=== PATIENT | female | born 1960 | race Caucasian/White ===

== ENCOUNTER → 2016-07-23 | Outpatient (CLI) | payer BC, MEDICARE ==
--- NOTE | 2016-07-23 12:43 | NM ---
Nuclear medicine hepatobiliary scan. HISTORY: Pain. COMPARISON: 07/05/2010 The patient received 2 micrograms of CCK and 5.3 mCi of Technetium 99m Choletec. There is normal hepatic extraction. The gallbladder is seen by 3.5 minutes. There is biliary to bow el clearance by 20 minutes. Ejection fraction could not be obtained. IMPRESSION: 1. Delayed uptake within the gallbladder suggestive of 3.5 hours. Findings are suspicious for cholecy stitis. Correlate clinically.
== END | disposition home or self-care (01) ==
LOC: RADNMMAIN 06:31
PROVIDERS: ATTEND Surgery
DX: R10.11 Right upper quadrant pain (principal); R13.10 Dysphagia, unspecified
CPT/HCPCS: 78227; A9537; J2805

== ENCOUNTER → 2016-08-16 | Outpatient (CLI) | payer BC, MEDICARE ==
[2016-08-16 10:25] LABS: Blood Urea Nitrogen 13 mg/dL (7-17); Non-African American GFR(MDRD) >60 (>60 ml/min/1.73 sqM)
--- NOTE | 2016-08-16 11:11 | CT ---
EXAMINATION TYPE: CT angio chest DATE OF EXAM: 08/16/2016 11:01 AM COMPARISON: Previous study dated 05/31/2016 HISTORY: Patient has no complaints at time of study. Follow up study for known pulmonary embolism. CT DLP: 602 mGycm Automated exposure control for dose reduction was used. CONTRAST: CTA scan of the thorax is performed with IV Contrast, patient injected with 100 mL of Omnipaque 350, pulmonary embolism protocol. . FINDINGS: The lungs are clear. There is a 1 cm right axillary lymph node. No other significant axillary, internal mammary, mediastin al or hilar adenopathy is noted. The patient's pulmonary emboli have resolved. There is no evidence of acute pulmonary embolus at this time. The aorta is normal in caliber without evidence of dissection. There is no pleural or pericardial fluid. The heart is not enlarged. Within the abdomen, there is fatty infiltration of the liver. The remainder the visualized abdomen is unremarkable. There is degenerative disc disease and hypertrophic spondylosis within the spine. There has been a pr evious ACDF involving the lower cervical spine. IMPRESSION: 1. THIS EXAMINATION IS NEGATIVE FOR PULMONARY EMBOLUS. 2. NONSPECIFIC RIGHT AXILLARY ADENOPATHY. 3. FATTY INFILTRATION OF THE LIVER. 4. DEGENERATIVE CHANGE WITHIN THE SPINE.
== END | disposition home or self-care (01) ==
LOC: RADCTMAIN 09:39
PROVIDERS: ATTEND Internal Medicine Critical Care Medicine
DX: Z09 Encounter for follow-up examination after completed treatment for conditions other than malignant neoplasm (principal); R59.0 Localized enlarged lymph nodes; Z01.812 Encounter for preprocedural laboratory examination; E11.9 Type 2 diabetes mellitus without complications; Z86.711 Personal history of pulmonary embolism
CPT/HCPCS: 82565; 84520; 71275; 36415; Q9967

== ENCOUNTER 2016-08-17 14:48 | Inpatient (IN) | payer BC, MEDICARE ==
[2016-08-17] MEDS ORDERED: SODIUM CHLORIDE 0.9% 1,000 ML IV STA ×2 (15:49)
[2016-08-17] MEDS ORDERED: PANTOPRAZOLE 40 MG/10 ML VIAL IVP STA (15:49)
[2016-08-17] MEDS ORDERED: SODIUM CHLORIDE 0.9% 500 ML IV STA (15:49)
[2016-08-17] MEDS ORDERED: ONDANSETRON 4 MG/2 ML VIAL IVP STA (15:49)
--- NOTE | 2016-08-17 16:02 | ED ---
General Adult HPI - General Chief complaint: Nausea/Vomiting/Diarrhea Stated complaint: vomiting/dehydrated/abdominal pain Time Seen by Provider: 08/17/16 15:41 Source: patient, RN notes reviewed, old records reviewed Mode of arrival: wheelchair Limitations: no limitations - History of Present Illness Initial comments: This is a 56-year-old female to the ER for evaluation of weight loss and nausea vomiting. Patient has significant history of recent weight loss decreased appetite and inability to tolerate oral intake. Patient is been seen and evaluated by Dr. wandy river in her family doctor. Patient has no specific chest pain no abdominal pain but does have active nausea vomiting with eating, decreased bowel movements. No other modifying factors for symptoms. Patient also noticed a significant weight loss symptoms going on for about 6 months - Related Data Home Medications Medication Instructions Recorded Confirmed Verapamil HCl [Verapamil ER] 180 mg PO DAILY 12/09/13 08/17/16 Albuterol Nebulized [Ventolin 2.5 mg INHALATION QID PRN 08/17/16 08/17/16 Nebulized] Levothyroxine Sodium [Synthroid] 150 mcg PO DAILY 08/17/16 08/17/16 Omeprazole [PriLOSEC] 20 mg PO DAILY 08/17/16 08/17/16 Ondansetron Odt [Zofran Odt] 4 mg PO Q8HR PRN 08/17/16 08/17/16 Ramipril [Altace] 2.5 mg PO DAILY 08/17/16 08/17/16 Rivaroxaban [Xarelto] 20 mg PO DAILY 08/17/16 08/17/16 Allergies Allergy/AdvReac Type Severity Reaction Status Date / Time adhesive Allergy Rash/Hives Verified 08/17/16 15:54 aspirin Allergy Unknown Verified 08/17/16 15:54 gabapentin Allergy Unknown Verified 08/17/16 15:54 NSAIDS (Non-Steroidal Allergy Unknown Verified 08/17/16 15:54 Anti-Inflamma ciprofloxacin [From Cipro] AdvReac Unknown Verified 08/17/16 15:54 ciprofloxacin HCl AdvReac Unknown Verified 08/17/16 15:54 [From Cipro] steroids Allergy Rash/Hives Uncoded 08/17/16 14:57 sulfates Allergy Unknown Uncoded 08/17/16 14:57 Review of Systems ROS Statement: Those systems with pertinent positive or pertinent negative responses have been documented in the HPI. ROS Other: All systems not noted in ROS Statement are negative. Past Medical History Past Medical History: Asthma, Diabetes Mellitus, GERD/Reflux, Hypertension, Myocardial Infarction (IA), Osteoarthritis (OA), Thyroid Disorder Additional Past Medical History / Comment(s): within past 4-6 weeks developed shingles of the tongue and mouth, difficulty swallowing, pt states "bottom 2 valves of heart not working right" and stated had IA within past 4-6 weeks and "collapsed lungs on the bottom of each lung and loss of 34# with constant cough. blood clots in lungs Last Myocardial Infarction Date:: 05/16 History of Any Multi-Drug Resistant Organisms: None Reported Past Surgical History: Section, Hernia Repair, Hysterectomy, Orthopedic Surgery Additional Past Surgical History / Comment(s): carpal tunnel. cataracts, cervical disc C6 replaced with plate and 4 screws Past Anesthesia/Blood Transfusion Reactions: Previous Problems w/ Anesthesia, Motion Sickness Additional Past Anesthesia/Blood Transfusion Reaction / Comment(s): "hard time waking up" and states difficult to lay flat Past Psychological History: No Psychological Hx Reported Smoking Status: Never smoker Past Alcohol Use History: None Reported Past Drug Use History: None Reported - Past Family History Mother Family Medical History: Cancer General Exam Limitations: no limitations General appearance: alert, in no apparent distress Head exam: Present: atraumatic, normocephalic, normal inspection Eye exam: Present: normal appearance, PERRL, EOMI. Absent: scleral icterus, conjunctival injection, periorbital swelling ENT exam: Present: normal exam, mucous membranes moist Neck exam: Present: normal inspection. Absent: tenderness, meningismus, lymphadenopathy Respiratory exam: Present: normal lung sounds bilaterally. Absent: respiratory distress, wheezes, rales, rhonchi, stridor Cardiovascular Exam: Present: regular rate, normal rhythm, normal heart sounds. Absent: systolic murmur, diastolic murmur, rubs, gallop, clicks GI/Abdominal exam: Present: soft, distended, tenderness, normal bowel sounds. Absent: guarding, rebound, rigid Extremities exam: Present: normal inspection, full ROM, normal capillary refill. Absent: tenderness, pedal edema, joint swelling, calf tenderness Back exam: Present: normal inspection Neurological exam: Present: alert, oriented X3, CN II-XII intact Psychiatric exam: Present: normal affect, normal mood Skin exam: Present: warm, dry, intact, normal color. Absent: rash Course Vital Signs 08/17/16 08/17/16 08/17/16 14:57 17:00 18:47 Temperature 97.5 F L 97.9 F 97.8 F Pulse Rate 96 84 84 Respiratory 18 18 18 Rate Blood Pressure 116/56 132/60 O2 Sat by Pulse 97 98 Oximetry - Reevaluation(s) Reevaluation #1: 08/17/16 19:04 Patient does have continued epigastric abdominal pain with nausea and vomiting Reevaluation #2: 08/17/16 19:04 Patient has complicated recent hospital course is Dr. Bravo patient for gallbladder disease, patient has been on anticoagulation for PE currently without positive findings of PE, patient will stop anticoagulation which is currently Xarelto EKG Findings - EKG Comments: EKG Findings:: EKG shows normal sinus rhythm rate of 80, NJ 146, QRS 70, QTC 399 Medical Decision Making - Medical Decision Making 56 female the ER for evaluation of acute nausea and vomiting, chronic nausea vomiting and weight loss, positive cholecystitis multiple electrolyte derangements, patient will be admitted for IV resuscitation and antibiotics and surgical evaluation - Lab Data Result diagrams: 08/17/16 16:00 08/17/16 16:00 Lab Results 08/17/16 08/17/16 08/17/16 Range/Units 16:00 16:00 16:00 WBC 10.0 (3.8-10.6) k/uL RBC 4.97 (3.80-5.40) m/uL Hgb 15.0 (11.4-16.0) gm/dL Hct 44.2 (34.0-46.0) % MCV 88.9 (80.0-100.0) fL MCH 30.1 (25.0-35.0) pg MCHC 33.9 (31.0-37.0) g/dL RDW 12.2 (11.5-15.5) % Plt Count 289 (150-450) k/uL Neutrophils % 76 % Lymphocytes % 13 % Monocytes % 7 % Eosinophils % 3 % Basophils % 1 % Neutrophils # 7.6 (1.3-7.7) k/uL Lymphocytes # 1.3 (1.0-4.8) k/uL Monocytes # 0.7 (0-1.0) k/uL Eosinophils # 0.3 (0-0.7) k/uL Basophils # 0.1 (0-0.2) k/uL PT (9.0-12.0) sec INR (<1.1) APTT (22.0-30.0) sec Sodium 142 (137-145) mmol/L Potassium 4.2 (3.5-5.1) mmol/L Chloride 101 (98-107) mmol/L Carbon Dioxide 20 L (22-30) mmol/L Anion Gap 21 mmol/L BUN 13 (7-17) mg/dL Creatinine 0.59 (0.52-1.04) mg/dL Est GFR (MDRD) Af Amer >60 (>60 ml/min/1.73 sqM) Est GFR (MDRD) Non-Af >60 (>60 ml/min/1.73 sqM) Glucose 119 H (74-99) mg/dL Plasma Lactic Acid Rico (0.7-2.0) mmol/L Calcium 11.3 H (8.4-10.2) mg/dL Phosphorus 4.7 H (2.5-4.5) mg/dL Magnesium 1.8 (1.6-2.3) mg/dL Total Bilirubin 1.5 H (0.2-1.3) mg/dL AST 45 H (14-36) U/L ALT 61 H (9-52) U/L Alkaline Phosphatase 193 H (38-126) U/L Total Creatine Kinase <20 L (30-135) U/L CK-MB (CK-2) <0.2 (0.0-2.4) ng/mL CK-MB (CK-2) Rel Index Troponin I <0.012 (0.000-0.034) ng/mL NT-Pro-B Natriuret Pep pg/mL Total Protein 7.2 (6.3-8.2) g/dL Albumin 4.2 (3.5-5.0) g/dL TSH <0.015 L (0.465-4.680) mIU/L Urine Color Urine Appearance (Clear) Urine pH (5.0-8.0) Ur Specific [place] (1.001-1.035) Urine Protein (Negative) Urine Glucose (UA) (Negative) Urine Ketones (Negative) Urine Blood (Negative) Urine Nitrate (Negative) Urine Bilirubin (Negative) Urine Urobilinogen (<2.0) mg/dL Ur Leukocyte Esterase (Negative) Urine RBC (0-5) /hpf Urine WBC (0-5) /hpf Ur Squamous Epith Cells (0-4) /hpf Amorphous Sediment (None) /hpf Urine Bacteria (None) /hpf Cellular Casts (0) /lpf Granular Casts (0) /lpf Urine Mucus (None) /hpf 08/17/16 08/17/16 08/17/16 Range/Units 16:00 16:00 16:00 WBC (3.8-10.6) k/uL RBC (3.80-5.40) m/uL Hgb (11.4-16.0) gm/dL Hct (34.0-46.0) % MCV (80.0-100.0) fL MCH (25.0-35.0) pg MCHC (31.0-37.0) g/dL RDW (11.5-15.5) % Plt Count (150-450) k/uL Neutrophils % % Lymphocytes % % Monocytes % % Eosinophils % % Basophils % % Neutrophils # (1.3-7.7) k/uL Lymphocytes # (1.0-4.8) k/uL Monocytes # (0-1.0) k/uL Eosinophils # (0-0.7) k/uL Basophils # (0-0.2) k/uL PT 11.3 (9.0-12.0) sec INR 1.1 (<1.1) APTT 26.4 (22.0-30.0) sec Sodium (137-145) mmol/L Potassium (3.5-5.1) mmol/L Chloride (98-107) mmol/L Carbon Dioxide (22-30) mmol/L Anion Gap mmol/L BUN (7-17) mg/dL Creatinine (0.52-1.04) mg/dL Est GFR (MDRD) Af Amer (>60 ml/min/1.73 sqM) Est GFR (MDRD) Non-Af (>60 ml/min/1.73 sqM) Glucose (74-99) mg/dL Plasma Lactic Acid Rico 1.3 (0.7-2.0) mmol/L Calcium (8.4-10.2) mg/dL Phosphorus (2.5-4.5) mg/dL Magnesium (1.6-2.3) mg/dL Total Bilirubin (0.2-1.3) mg/dL AST (14-36) U/L ALT (9-52) U/L Alkaline Phosphatase (38-126) U/L Total Creatine Kinase (30-135) U/L CK-MB (CK-2) (0.0-2.4) ng/mL CK-MB (CK-2) Rel Index Troponin I (0.000-0.034) ng/mL NT-Pro-B Natriuret Pep 59 pg/mL Total Protein (6.3-8.2) g/dL Albumin (3.5-5.0) g/dL TSH (0.465-4.680) mIU/L Urine Color Urine Appearance (Clear) Urine pH (5.0-8.0) Ur Specific [place] (1.001-1.035) Urine Protein (Negative) Urine Glucose (UA) (Negative) Urine Ketones (Negative) Urine Blood (Negative) Urine Nitrate (Negative) Urine Bilirubin (Negative) Urine Urobilinogen (<2.0) mg/dL Ur Leukocyte Esterase (Negative) Urine RBC (0-5) /hpf Urine WBC (0-5) /hpf Ur Squamous Epith Cells (0-4) /hpf Amorphous Sediment (None) /hpf Urine Bacteria (None) /hpf Cellular Casts (0) /lpf Granular Casts (0) /lpf Urine Mucus (None) /hpf 08/17/16 Range/Units 16:20 WBC (3.8-10.6) k/uL RBC (3.80-5.40) m/uL Hgb (11.4-16.0) gm/dL Hct (34.0-46.0) % MCV (80.0-100.0) fL MCH (25.0-35.0) pg MCHC (31.0-37.0) g/dL RDW (11.5-15.5) % Plt Count (150-450) k/uL Neutrophils % % Lymphocytes % % Monocytes % % Eosinophils % % Basophils % % Neutrophils # (1.3-7.7) k/uL Lymphocytes # (1.0-4.8) k/uL Monocytes # (0-1.0) k/uL Eosinophils # (0-0.7) k/uL Basophils # (0-0.2) k/uL PT (9.0-12.0) sec INR (<1.1) APTT (22.0-30.0) sec Sodium (137-145) mmol/L Potassium (3.5-5.1) mmol/L Chloride (98-107) mmol/L Carbon Dioxide (22-30) mmol/L Anion Gap mmol/L BUN (7-17) mg/dL Creatinine (0.52-1.04) mg/dL Est GFR (MDRD) Af Amer (>60 ml/min/1.73 sqM) Est GFR (MDRD) Non-Af (>60 ml/min/1.73 sqM) Glucose (74-99) mg/dL Plasma Lactic Acid Rico (0.7-2.0) mmol/L Calcium (8.4-10.2) mg/dL Phosphorus (2.5-4.5) mg/dL Magnesium (1.6-2.3) mg/dL Total Bilirubin (0.2-1.3) mg/dL AST (14-36) U/L ALT (9-52) U/L Alkaline Phosphatase (38-126) U/L Total Creatine Kinase (30-135) U/L CK-MB (CK-2) (0.0-2.4) ng/mL CK-MB (CK-2) Rel Index Troponin I (0.000-0.034) ng/mL NT-Pro-B Natriuret Pep pg/mL Total Protein (6.3-8.2) g/dL Albumin (3.5-5.0) g/dL TSH (0.465-4.680) mIU/L Urine Color Dark Brown Urine Appearance Turbid H (Clear) Urine pH 6.0 (5.0-8.0) Ur Specific [place] 1.028 (1.001-1.035) Urine Protein 3+ H (Negative) Urine Glucose (UA) Negative (Negative) Urine Ketones 3+ H (Negative) Urine Blood Negative (Negative) Urine Nitrate Negative (Negative) Urine Bilirubin 2+ H (Negative) Urine Urobilinogen 8.0 (<2.0) mg/dL Ur Leukocyte Esterase Negative (Negative) Urine RBC 7 H (0-5) /hpf Urine WBC 7 H (0-5) /hpf Ur Squamous Epith Cells 14 H (0-4) /hpf Amorphous Sediment Rare H (None) /hpf Urine Bacteria Many H (None) /hpf Cellular Casts 13 (0) /lpf Granular Casts 40 (0) /lpf Urine Mucus Many H (None) /hpf - Radiology Data Radiology results: report reviewed (Ultrasound shows positive cholecystitis), image reviewed Disposition Clinical Impression: Acute cholecystitis, Dehydration, Nausea and vomiting, Anorexia Disposition: ADMITTED IP TO THIS HOSP Condition: Fair Referrals: Shira Velasquez DO [Primary Care Provider] - 1-2 days
[2016-08-17 16:23] LABS: Basophils # (A) 0.1 k/uL (0-0.2); Basophils % (A) 1 %; CH 31.1; CHCM 35.1; Eosinophils # (A) 0.3 k/uL (0-0.7); Eosinophils % (A) 3 %; HCT 44.2 % (34.0-46.0); HDW 2.87; Luc # (Auto) 0.14; Luc % (Auto) 1; Lymphocytes # (A) 1.3 k/uL (1.0-4.8); Lymphocytes % (A) 13 %; MCH 30.1 pg (25.0-35.0); MCHC 33.9 g/dL (31.0-37.0); MCV 88.9 fL (80.0-100.0); Mean Platelet Volume 9.6; Monocytes # (A) 0.7 k/uL (0-1.0); Monocytes % (A) 7 %; Neutrophils # (A) 7.6 k/uL (1.3-7.7); Neutrophils % (A) 76 %; RBC 4.97 m/uL (3.80-5.40); RDW 12.2 % (11.5-15.5); WBC (Perox) 9.87
[2016-08-17 16:32] LABS: INR 1.1 (<1.1); Partial Thromboplastin Time 26.4 sec (22.0-30.0); Prothrombin Time 11.3 sec (9.0-12.0)
[2016-08-17 16:35] LABS: Amorphous Sediment,Urine Rare /hpf; Appearance,Urine Turbid (Clear); Bacteria,Urine Many /hpf; Bilirubin,Urine 2+ (Negative); Glucose,Urine (UA) Negative (Negative); Granular Casts,Urine 40 /lpf (0); Ketones,Urine 3+ (Negative); Leukocyte Esterase,Urine Negative (Negative); Mucus,Urine Many /hpf; Nitrite,Urine Negative (Negative); Particle Count 49795; Protein,Urine 3+ (Negative); RBC,Urine 7 /hpf (0-5); Specific Gravity,Urine 1.028 (1.001-1.035); Squamous Epithelial Cell,Urine 14 /hpf (0-4); UA Billing (MACRO vs. MICRO) MICRO; WBC,Urine 7 /hpf (0-5)
[2016-08-17 16:39] LABS: ALT 61 U/L (9-52); AST 45 U/L (14-36); Alkaline Phosphatase 193 U/L (38-126); Anion Gap 21 mmol/L; Blood Urea Nitrogen 13 mg/dL (7-17); Calcium 11.3 mg/dL (8.4-10.2); Carbon Dioxide 20 mmol/L (22-30); Chloride 101 mmol/L (98-107); Glucose 119 mg/dL (74-99); Magnesium 1.8 mg/dL (1.6-2.3); Non-African American GFR(MDRD) >60 (>60 ml/min/1.73 sqM); Phosphorous 4.7 mg/dL (2.5-4.5); Potassium 4.2 mmol/L (3.5-5.1); Sodium 142 mmol/L (137-145); Total Bilirubin 1.5 mg/dL (0.2-1.3); Total Protein 7.2 g/dL (6.3-8.2)
[2016-08-17 16:53] LABS: Creatine Kinase <20 U/L (30-135)
[2016-08-17 17:06] LABS: Creatine Kinase MB <0.2 ng/mL (0.0-2.4); Troponin I <0.012 ng/mL (0.000-0.034)
--- NOTE | 2016-08-17 18:19 | US ---
EXAMINATION TYPE: US gallbladder DATE OF EXAM: 08/17/2016 5:44 PM COMPARISON: NONE CLINICAL HISTORY: Pain. Nausea/vomiting EXAM MEASUREMENTS: Liver Length: 19.1 cm Gallbladder Wall: 0.4 cm CBD: 0.3 cm Right Kidney: 10.7 x 3.8 x 4.5 cm TECHNOLOGIST IMPRESSION: Pancreas: obscured by overlying bowel content Liver: technical limitations, limited evaluation, enlarged, heterogeneous, unable to penetrate Gallbladder: echogenic material with shadowing dependant portion of GB, ?possible sludge with tiny stones, thickened GB wall Evidence for sonographic Boyd's sign: patient complaining of pain all over CBD: appears wnl Right Kidney: no evidence of hydronephrosis or mass IMPRESSION: There is echogenic bile in the dependent gallbladder. There is mild gallbladder wall thic kening consistent with cholecystitis. No dilated ducts. No focal liver defect.
[2016-08-17] MEDS ORDERED: MORPHINE SULFATE 4 MG/ML SYRINGE IVP STA (19:05)
[2016-08-17 21:51] VITALS: BMI 37.8
[2016-08-17] MEDS: MORPHINE SULFATE 4 MG/ML SYRINGE IVP PRN (23:08)
[2016-08-17] MEDS: ONDANSETRON 4 MG/2 ML VIAL IVP PRN (23:11)
[2016-08-18] MEDS: ONDANSETRON 4 MG/2 ML VIAL IVP PRN ×4 (08:22→23:51)
[2016-08-18] MEDS: PANTOPRAZOLE 40 MG/10 ML VIAL IVP SCH (08:22)
[2016-08-18] MEDS: MORPHINE SULFATE 4 MG/ML SYRINGE IVP PRN ×2 (08:38→23:56)
[2016-08-18] MEDS ORDERED: BISACODYL 10 MG SUPP RECTAL STA (09:19)
--- NOTE | 2016-08-18 10:00 | P.GSCN ---
History of Present Illness Consult date: 08/18/16 Reason for Consult: gALL BLADDER DISEASE History of present illness: The patient is a [age] white female who was admitted through the emergency room last night. Has had a long history several months now of the abdominal symptoms mostly of nausea vomiting and upper abdominal pain and weight loss and anorexia have evidence of gallbladder disease with the lithiasis was deferred because of her history recently for pulmonary embolism patient being on anticoagulation. Also had recently shingles infection involving her mouth and throat. Has lost amount of weight since May was is symptoms when her symptoms started. She presented to the emergency room last night because of worsening symptoms. No fever or chills. Hasn't had a bowel movement for several days now. She had an ultrasound last night which showed thickened gallbladder wall with evidence of sludge especially in the area of the neck of the gallbladder. Past history well-documented on recent admissions. Surgery includes a hysterectomy umbilical hernia repair is also had some cervical neck surgery. History of recent pulmonary embolism about the 3 months ago. On sotalol for. Has a history of hypertension hypertension depression. ALLERGIES has multiple ALLERGIES including to aspirin and nsaids Gabapentin, Cipro. Symptoms review as above. No current chest pain. No shortness of breath. No cough hemoptysis. Has some constipation. No blood in the stool. No urinary symptoms. Has had a fair amount of weight loss. On examination the patient is awake alert in no acute distress at this time. She is somewhat overweight at the bottom 88 kg with a BMI of 37.9. Color and hydration satisfactory. She is anicteric. Temperature is normal. Vitals are good. Head and neck otherwise normal. Heart regular rhythm. Lungs are clear. Abdomen is overweight the. No mass or organomegaly. Some induration above the umbilicus which may be scarring from a previous repair with mesh. No mass or organomegaly. Has mild the tenderness in the epigastric area but no guarding or rebound. Extremities normal with full motion. [employer]ING intact. Ultrasound was reviewed. Showed thickening of the gallbladder wall with sludge and tiny stones in the dependent portion of the gallbladder. Common bile duct was not dilated. Laboratory studies shows a normal WBC but the bilirubin is mildly elevated to 1.5 as are her LFTs. Impression probably acute cholecystitis cholelithiasis. The pulmonary embolism. Recommendation continued medical management for now with IV fluids antibiotics restriction of diet DVT prophylaxis. Please see orders. At this time of. Hold off on surgical intervention at least until the acute the process is improved or resolved the she can have her surgery done ELECTIVELY or semi- electively would consider evaluation by pulmonary regarding her pulmonary embolus situation and consideration for resumption of her anticoagulation. Past Medical History Past Medical History: Asthma, Diabetes Mellitus, GERD/Reflux, Myocardial Infarction (ME), Osteoarthritis (OA), Thyroid Disorder Additional Past Medical History / Comment(s): within past 4-6 weeks developed shingles of the tongue and mouth, difficulty swallowing, pt states "bottom 2 valves of heart not working right" and stated had ME within past 4-6 weeks and "collapsed lungs on the bottom of each lung and loss of 34# with constant cough. blood clots in lungs Last Myocardial Infarction Date:: 05/16 History of Any Multi-Drug Resistant Organisms: None Reported Past Surgical History: Section, Hernia Repair, Hysterectomy, Orthopedic Surgery Additional Past Surgical History / Comment(s): carpal tunnel. cataracts, cervical disc C6 replaced with plate and 4 screws Past Anesthesia/Blood Transfusion Reactions: Previous Problems w/ Anesthesia, Motion Sickness Additional Past Anesthesia/Blood Transfusion Reaction / Comm: "hard time waking up" and states difficult to lay flat Past Psychological History: No Psychological Hx Reported Smoking Status: Never smoker Past Alcohol Use History: None Reported Past Drug Use History: None Reported - Past Family History Mother Family Medical History: Cancer Medications and Allergies Home Medications Medication Instructions Recorded Confirmed Type Verapamil HCl [Verapamil ER] 180 mg PO DAILY 12/09/13 08/17/16 History Albuterol Nebulized [Ventolin 2.5 mg INHALATION QID PRN 08/17/16 08/17/16 History Nebulized] Levothyroxine Sodium [Synthroid] 150 mcg PO DAILY 08/17/16 08/17/16 History Omeprazole [PriLOSEC] 20 mg PO DAILY 08/17/16 08/17/16 History Ondansetron Odt [Zofran Odt] 4 mg PO Q8HR PRN 08/17/16 08/17/16 History Ramipril [Altace] 2.5 mg PO DAILY 08/17/16 08/17/16 History Rivaroxaban [Xarelto] 20 mg PO DAILY 08/17/16 08/17/16 History Allergies Allergy/AdvReac Type Severity Reaction Status Date / Time adhesive Allergy Rash/Hives Verified 08/17/16 15:54 aspirin Allergy Unknown Verified 08/17/16 15:54 gabapentin Allergy Unknown Verified 08/17/16 15:54 NSAIDS (Non-Steroidal Allergy Unknown Verified 08/17/16 15:54 Anti-Inflamma ciprofloxacin [From Cipro] AdvReac Unknown Verified 08/17/16 15:54 ciprofloxacin HCl AdvReac Unknown Verified 08/17/16 15:54 [From Cipro] steroids Allergy Rash/Hives Uncoded 08/17/16 14:57 sulfates Allergy Unknown Uncoded 08/17/16 14:57 Surgical - Exam Vital Signs Temp Pulse Resp BP Pulse Ox 97.5 F L 96 18 116/56 97 08/17/16 14:57 08/17/16 14:57 08/17/16 14:57 08/17/16 14:57 08/17/16 14:57 Results - Labs 08/17/16 16:00 08/17/16 16:00
[2016-08-18] MEDS ORDERED: ALBUTEROL NEBULIZED 2.5 MG/3 ML INHALATION PRN (14:10)
[2016-08-18] MEDS ORDERED: NON-FORMULARY DRUG (Omeprazole 20 MG) PO SCH (14:15)
--- NOTE | 2016-08-18 14:19 | P.HPIM ---
History of Present Illness H&P Date: 08/18/16 Chief Complaint: Abdominal pain and nausea This is a 56-year-old female with past medical history noted below significant for chronic cholecystitis and presented to the emergency room with worsening abdominal pain and discomfort. Patient has been having this problems for several weeks and recently had an abnormal HIDA scan. Her surgery was postponed as she was diagnosed with a pulmonary emboli in May and was maintained on Rivaroxaban. She was evaluated in the emergency room and ultrasound showed mild thickening in the gallbladder wall. Patient was admitted to the hospital and surgery consulted. She is being managed medically and symptomatically for now. She was told by her network coordinator that she can get away with 3 month only of anticoagulation. She had a computed tomography scan of the chest 2 days ago that was negative for any evidence of PE. Review of Systems Review of system: 14 points review of systems were obtained and were negative except to what were mentioned in the HPI. Past Medical History Past Medical History: Asthma, Diabetes Mellitus, GERD/Reflux, Myocardial Infarction (UT), Osteoarthritis (OA), Thyroid Disorder Additional Past Medical History / Comment(s): within past 4-6 weeks developed shingles of the tongue and mouth, difficulty swallowing, pt states "bottom 2 valves of heart not working right" and stated had UT within past 4-6 weeks and "collapsed lungs on the bottom of each lung and loss of 34# with constant cough. blood clots in lungs Last Myocardial Infarction Date:: 05/16 History of Any Multi-Drug Resistant Organisms: None Reported Past Surgical History: Section, Hernia Repair, Hysterectomy, Orthopedic Surgery Additional Past Surgical History / Comment(s): carpal tunnel. cataracts, cervical disc C6 replaced with plate and 4 screws Past Anesthesia/Blood Transfusion Reactions: Previous Problems w/ Anesthesia, Motion Sickness Additional Past Anesthesia/Blood Transfusion Reaction / Comment(s): "hard time waking up" and states difficult to lay flat Past Psychological History: No Psychological Hx Reported Smoking Status: Never smoker Past Alcohol Use History: None Reported Past Drug Use History: None Reported - Past Family History Mother Family Medical History: Cancer Medications and Allergies Home Medications Medication Instructions Recorded Confirmed Type Verapamil HCl [Verapamil ER] 180 mg PO DAILY 12/09/13 08/17/16 History Albuterol Nebulized [Ventolin 2.5 mg INHALATION QID PRN 08/17/16 08/17/16 History Nebulized] Levothyroxine Sodium [Synthroid] 150 mcg PO DAILY 08/17/16 08/17/16 History Omeprazole [PriLOSEC] 20 mg PO DAILY 08/17/16 08/17/16 History Ondansetron Odt [Zofran Odt] 4 mg PO Q8HR PRN 08/17/16 08/17/16 History Ramipril [Altace] 2.5 mg PO DAILY 08/17/16 08/17/16 History Rivaroxaban [Xarelto] 20 mg PO DAILY 08/17/16 08/17/16 History Allergies Allergy/AdvReac Type Severity Reaction Status Date / Time adhesive Allergy Rash/Hives Verified 08/17/16 15:54 aspirin Allergy Unknown Verified 08/17/16 15:54 gabapentin Allergy Unknown Verified 08/17/16 15:54 NSAIDS (Non-Steroidal Allergy Unknown Verified 08/17/16 15:54 Anti-Inflamma ciprofloxacin [From Cipro] AdvReac Unknown Verified 08/17/16 15:54 ciprofloxacin HCl AdvReac Unknown Verified 08/17/16 15:54 [From Cipro] steroids Allergy Rash/Hives Uncoded 08/17/16 14:57 sulfates Allergy Unknown Uncoded 08/17/16 14:57 Physical Exam Vitals: Vital Signs Temp Pulse Resp BP Pulse Ox 08/18/16 11:13 96 08/18/16 07:00 98 F 80 15 132/80 96 08/18/16 03:41 97.2 F L 81 15 134/64 99 08/17/16 21:20 97.8 F 86 17 117/60 97 08/17/16 20:00 16 Intake and Output 08/17/16 08/18/16 08/18/16 22:59 06:59 14:59 Intake Total 350 Balance 350 Intake: Oral 350 Other: Voiding Method Toilet # Voids 1 1 Weight 87.997 kg General: The patient is awake and alert, in no distress, and does not appear acutely ill. Eye: extra-ocular movements are intact; there is normal conjunctiva bilaterally. . Neck: The neck is supple, there is no tenderness or JVD. Cardiovascular: Normal S1-S2, no S3-S4, no murmurs. Respiratory: Lungs clear to auscultation bilaterally with no wheezes rhonchi or rales. Gastrointestinal: Abdomen is soft, there is moderate tenderness to palpation in the right upper quadrant Musculoskeletal: Normal ROM, no tenderness, There is no pedal edema. Neurological: There are no obvious motor or sensory deficits. Speech is normal. Skin: Skin is warm and dry and no rashes or lesions are noted. Results CBC & Chem 7: 08/17/16 16:00 08/17/16 16:00 Thrombosis Risk Factor Assmnt - Choose All That Apply Any of the Below Risk Factors Present?: Yes Each Factor Represents 1 point: Age 41-60 years, Obesity (BMI >25) Other Risk Factors: Yes Each Risk Factor Represents 3 Points: History of DVT/PE Other congenital or acquired thrombophilia - If yes, enter type in comment: No Thrombosis Risk Factor Assessment Total Risk Factor Score: 5 Thrombosis Risk Factor Assessment Level: High Risk Assessment and Plan Plan: 1. Acute on chronic cholecystitis: Now managed conservatively awaiting her surgeon to return for possible cholecystectomy on Saturday 2. History of pulmonary emboli: Currently off anticoagulation with Rivaroxaban. per her network coordinator recommendations. Consultation requested 3. Essential hypertension: Blood pressure well-controlled 4. Nausea, vomiting, and abdominal pain: Managed symptomatically 5. Hypothyroidism 6. DVT prophylaxis with subcu We will continue gentle IV fluid hydration. Antiemetics, pain control, and stool softeners as needed. Patient was offered to be discharged home and return for elective cholecystectomy that she is not feeling well enough and she is requesting to stay in the hospital. We will continue to monitor closely. Repeat lab work in the morning.
[2016-08-18] MEDS: PIPERACILLIN-TAZOBACTAM 3.375 GM in DEXTROSE/WATER 1 50ML.BAG IVPB SCH ×2 (15:30→23:51)
[2016-08-18] MEDS: LEVOTHYROXINE 75 MCG TAB PO SCH (15:31)
[2016-08-19] MEDS: LEVOTHYROXINE 75 MCG TAB PO SCH (05:46)
[2016-08-19 07:48] LABS: ALT 57 U/L (9-52); AST 39 U/L (14-36); Alkaline Phosphatase 148 U/L (38-126); Anion Gap 16 mmol/L; Blood Urea Nitrogen 7 mg/dL (7-17); Calcium 10.4 mg/dL (8.4-10.2); Carbon Dioxide 21 mmol/L (22-30); Chloride 111 mmol/L (98-107); Glucose 78 mg/dL (74-99); Non-African American GFR(MDRD) >60 (>60 ml/min/1.73 sqM); Sodium 148 mmol/L (137-145); Total Bilirubin 1.2 mg/dL (0.2-1.3); Total Protein 6.2 g/dL (6.3-8.2)
[2016-08-19] MEDS: PANTOPRAZOLE 40 MG/10 ML VIAL IVP SCH (08:17)
[2016-08-19] MEDS: VERAPAMIL SR 180 MG TABLET.ER PO SCH (08:18)
[2016-08-19] MEDS: LISINOPRIL 10 MG TAB PO SCH (08:18)
[2016-08-19] MEDS: ONDANSETRON 4 MG/2 ML VIAL IVP PRN ×3 (08:18→21:20)
[2016-08-19] MEDS: PIPERACILLIN-TAZOBACTAM 3.375 GM in DEXTROSE/WATER 1 50ML.BAG IVPB SCH ×2 (09:06→14:59)
--- NOTE | 2016-08-19 09:58 | P.PN ---
Progress Note - Text The patient feels a lot better today much less pain. Tolerating a clear liquids. No nausea or vomiting now. On examination the patient is awake alert oriented in no distress. Temperature is normal vitals stable. The abdomen is quite soft but still has a fair amount of tenderness in the right upper quadrant with some minimal voluntary guarding but no rebound or rigidity or mass. WBC is normal. Bilirubin is down to 1.2 from 1.5. LFTs also improving. Impression. Acute on chronic cholecystitis. Mildly elevated LFTs improving. May have passed a common duct stone. History of for recent pulmonary embolism improved on recent CT of the chest. Recommendation continued medical management. Await pulmonary consult. Would like to see LFTs are close to normal before proceeding with the laparoscopic cholecystectomy.
--- NOTE | 2016-08-19 13:51 | P.CNPUL ---
History of Present Illness Consult date: 08/19/16 Reason for consult: other Chief complaint: Nausea vomiting diarrhea History of present illness: This is a 56-year-old female with history of nausea vomiting or diarrhea. She' s also had decreased appetite and weight loss. She apparently was scheduled to have some surgery done by one of the surgeons. She was supposed to have a hernia repair and a cholecystectomy. That was on hold because she recently had a pulmonary embolism. Her most recent computed tomography scan apparently showed that the embolism had resolved. I called her from my office yesterday to let her know. I will let the surgeons know that from my perspective it safe at this time. Anyway she her biggest issue during our GI. No pulmonary complaints. Feeling about the same as she did when she came in. She was initially seen on the through the ER. Review of Systems A 12 point review of system is positive for nausea vomiting and diarrhea. She still has O's complaints. She has poor appetite and poor oral intake. No shortness of breath chest pain cough phlegm production fever chills Past Medical History Past Medical History: Asthma, Diabetes Mellitus, GERD/Reflux, Myocardial Infarction (CT), Osteoarthritis (OA), Thyroid Disorder Additional Past Medical History / Comment(s): within past 4-6 weeks developed shingles of the tongue and mouth, difficulty swallowing, pt states "bottom 2 valves of heart not working right" and stated had CT within past 4-6 weeks and "collapsed lungs on the bottom of each lung and loss of 34# with constant cough. blood clots in lungs Last Myocardial Infarction Date:: 05/16 History of Any Multi-Drug Resistant Organisms: None Reported Past Surgical History: Section, Hernia Repair, Hysterectomy, Orthopedic Surgery Additional Past Surgical History / Comment(s): carpal tunnel. cataracts, cervical disc C6 replaced with plate and 4 screws Past Anesthesia/Blood Transfusion Reactions: Previous Problems w/ Anesthesia, Motion Sickness Additional Past Anesthesia/Blood Transfusion Reaction / Comment(s): "hard time waking up" and states difficult to lay flat Past Psychological History: No Psychological Hx Reported Smoking Status: Never smoker Past Alcohol Use History: None Reported Past Drug Use History: None Reported - Past Family History Mother Family Medical History: Cancer Medications and Allergies Home Medications Medication Instructions Recorded Confirmed Type Verapamil HCl [Verapamil ER] 180 mg PO DAILY 12/09/13 08/17/16 History Albuterol Nebulized [Ventolin 2.5 mg INHALATION QID PRN 08/17/16 08/17/16 History Nebulized] Levothyroxine Sodium [Synthroid] 150 mcg PO DAILY 08/17/16 08/17/16 History Omeprazole [PriLOSEC] 20 mg PO DAILY 08/17/16 08/17/16 History Ondansetron Odt [Zofran Odt] 4 mg PO Q8HR PRN 08/17/16 08/17/16 History Ramipril [Altace] 2.5 mg PO DAILY 08/17/16 08/17/16 History Rivaroxaban [Xarelto] 20 mg PO DAILY 08/17/16 08/17/16 History Allergies Allergy/AdvReac Type Severity Reaction Status Date / Time adhesive Allergy Rash/Hives Verified 08/17/16 15:54 aspirin Allergy Unknown Verified 08/17/16 15:54 gabapentin Allergy Unknown Verified 08/17/16 15:54 NSAIDS (Non-Steroidal Allergy Unknown Verified 08/17/16 15:54 Anti-Inflamma ciprofloxacin [From Cipro] AdvReac Unknown Verified 08/17/16 15:54 ciprofloxacin HCl AdvReac Unknown Verified 08/17/16 15:54 [From Cipro] steroids Allergy Rash/Hives Uncoded 08/17/16 14:57 sulfates Allergy Unknown Uncoded 08/17/16 14:57 Physical Exam Osteopathic Statement: *. No significant issues noted on an osteopathic structural exam other than those noted in the History and Physical/Consult. Vitals: Vital Signs Temp Pulse Resp BP Pulse Ox 08/19/16 07:00 97.9 F 81 15 154/79 96 08/19/16 04:03 97.9 F 87 16 129/76 98 08/18/16 20:00 98.0 F 89 16 142/81 95 08/18/16 15:00 97.5 F L 87 16 149/68 97 Intake and Output 08/18/16 08/19/16 08/19/16 22:59 06:59 14:59 Intake Total 350 Balance 350 Intake: Oral 350 Other: Voiding Method Toilet # Voids 2 2 No acute distress, sitting at the bedside. Has a food tray in front of her but really hasn't eaten much or any other. HEENT examination is grossly unremarkable. Mucous membranes are moist. No oral lesions. Neck supple. Full range of motion. Cardiovascular examination reveals regular rhythm rate. S1-S2 normal. No S3- S4 or murmur. Lungs are clear breath sounds equal. No wheezes or rhonchi. Abdomen soft bowel sounds are heard. Extremities are intact. Results - Laboratory Findings CBC and BMP: 08/17/16 16:00 08/19/16 06:58 PT/INR, D-dimer PT 11.3 sec (9.0-12.0) 08/17/16 16:00 INR 1.1 (<1.1) 08/17/16 16:00 Abnormal lab findings: Abnormal Labs 08/19/16 06:58 Sodium 148 H Chloride 111 H Carbon Dioxide 21 L Calcium 10.4 H AST 39 H ALT 57 H Alkaline Phosphatase 148 H Total Protein 6.2 L Albumin 3.4 L - Diagnostic Findings Chest x-ray: image reviewed Assessment and Plan (1) Acute cholecystitis Status: Acute (2) Anorexia Status: Acute (3) Dehydration Status: Acute (4) Nausea and vomiting Status: Acute Plan: Plan The patient is doing well from a pulmonary standpoint. I told her the results of the CAT scan which will complete dissolution of a clot. Her primary she is now occluded GI issues including nausea vomiting or diarrhea. She has anticipated surgery was performed the surgeons including an EGD hernia repair and cholecystectomy. I'm not sure when asked to be done. I'll speak to the surgeon about what it might be done. Additional recommendations suggestions are forthcoming. Prognosis is guarded. Time with Patient: Greater than 30
--- NOTE | 2016-08-19 15:01 | P.PN ---
Subjective Principal diagnosis: Chronic cholecystitis Patient had a mechanical fall this morning where she landed on her buttock. She denies any pain at this time. No dizziness or lightheadedness. She is doing fairly well otherwise. She is tolerating liquid diets. Objective - Vital Signs Vital signs: Vital Signs Temp 97.9 F 08/19/16 07:00 Pulse 81 08/19/16 07:00 Resp 15 08/19/16 07:00 BP 154/79 08/19/16 07:00 Pulse Ox 96 08/19/16 07:00 Intake & Output 08/18/16 08/19/16 08/19/16 18:59 06:59 18:59 Intake Total 600 100 300 Balance 600 100 300 Intake: Oral 600 100 300 Other: Voiding Method Indwelling Catheter Toilet # Voids 3 2 4 - Exam General: The patient is awake and alert, in no distress Eye: there is normal conjunctiva bilaterally. Neck: The neck is supple, there is no JVD. Cardiovascular: Normal S1-S2, no S3-S4, no murmurs. Respiratory: Lungs clear to auscultation bilaterally Gastrointestinal: Abdomen is soft, nontender Musculoskeletal: There is no pedal edema. Neurological:. Speech is normal. Skin: Skin is warm and dry - Labs CBC & Chem 7: 08/17/16 16:00 08/19/16 06:58 Labs: Abnormal Lab Results - Last 24 Hours (Table) 08/19/16 Range/Units 06:58 Sodium 148 H (137-145) mmol/L Chloride 111 H (98-107) mmol/L Carbon Dioxide 21 L (22-30) mmol/L Calcium 10.4 H (8.4-10.2) mg/dL AST 39 H (14-36) U/L ALT 57 H (9-52) U/L Alkaline Phosphatase 148 H (38-126) U/L Total Protein 6.2 L (6.3-8.2) g/dL Albumin 3.4 L (3.5-5.0) g/dL Assessment and Plan Plan: 1. Acute on chronic cholecystitis: Now managed conservatively awaiting her surgeon to return for possible cholecystectomy on Saturday 2. History of pulmonary emboli: Currently off anticoagulation with Rivaroxaban. She was seen and evaluated by pulmonary during this admission and was cleared to discontinue Rivaroxaban 3. Essential hypertension: Blood pressure well-controlled 4. Nausea, vomiting, and abdominal pain: Managed symptomatically 5. Hypothyroidism 6. DVT prophylaxis with subcu Discontinue IV fluids and encourage oral hydration. Antiemetics, pain control, and stool softeners as needed. Patient was offered to be discharged home and return for elective cholecystectomy that she is not feeling well enough and she is requesting to stay in the hospital. We will continue to monitor closely. Repeat lab work in the morning.
[2016-08-19] MEDS: MORPHINE SULFATE 4 MG/ML SYRINGE IVP PRN (21:57)
[2016-08-20] MEDS: PIPERACILLIN-TAZOBACTAM 3.375 GM in DEXTROSE/WATER 1 50ML.BAG IVPB SCH ×4 (00:04→23:34)
[2016-08-20] MEDS: LEVOTHYROXINE 75 MCG TAB PO SCH (06:06)
[2016-08-20 07:44] LABS: Basophils % (A) 1 %; CH 30.2; Eosinophils # (A) 0.2 k/uL (0-0.7); Eosinophils % (A) 2 %; HCT 38.1 % (34.0-46.0); HDW 2.91; HGB 12.3 gm/dL (11.4-16.0); Luc # (Auto) 0.15; Luc % (Auto) 2; Lymphocytes # (A) 1.2 k/uL (1.0-4.8); Lymphocytes % (A) 18 %; MCH 29.7 pg (25.0-35.0); MCHC 32.4 g/dL (31.0-37.0); MCV 91.8 fL (80.0-100.0); Mean Platelet Volume 8.1; Monocytes # (A) 0.4 k/uL (0-1.0); Monocytes % (A) 7 %; Neutrophils # (A) 4.4 k/uL (1.3-7.7); Neutrophils % (A) 70 %; RBC 4.15 m/uL (3.80-5.40); RDW 12.3 % (11.5-15.5); WBC 6.3 k/uL (3.8-10.6); WBC (Perox) 6.89
[2016-08-20 07:55] LABS: Anion Gap 17 mmol/L; Blood Urea Nitrogen 6 mg/dL (7-17); Calcium 10.5 mg/dL (8.4-10.2); Carbon Dioxide 21 mmol/L (22-30); Chloride 108 mmol/L (98-107); Glucose 81 mg/dL (74-99); Non-African American GFR(MDRD) >60 (>60 ml/min/1.73 sqM); Potassium 3.6 mmol/L (3.5-5.1); Sodium 146 mmol/L (137-145)
[2016-08-20 09:11] LABS: ALT 52 U/L (9-52); AST 39 U/L (14-36); Alkaline Phosphatase 146 U/L (38-126); Total Bilirubin 1.2 mg/dL (0.2-1.3); Total Protein 5.7 g/dL (6.3-8.2)
[2016-08-20] MEDS: PANTOPRAZOLE 40 MG/10 ML VIAL IVP SCH (09:26)
[2016-08-20] MEDS: VERAPAMIL SR 180 MG TABLET.ER PO SCH (09:31)
[2016-08-20] MEDS: LISINOPRIL 10 MG TAB PO SCH (09:32)
--- NOTE | 2016-08-20 11:02 | P.PN ---
Subjective 56-year-old female with history of chronic cholecystitis presented with worsening abdominal pain and vomiting. She has had an abnormal HIDA scan outpatient. Surgery postponed due to diagnosis of pulmonary emboli in no May. She had been on Xarelto. A repeat CTA of the chest shows no evidence of a PE. Patient was evaluated by pulmonary service and Xarelto has been okayed to be discontinued. She's being followed by surgical service in regards to having her gallbladder removed. Patient's surgeon is usually Dr. Peck and he is out of town and will be back on Saturday. Patient was also told in outpatient setting that she could have an EGD completed. We'll await surgeon evaluation for his planned regarding cholecystectomy an EGD. Patient reports she has had some difficulty with swallowing and was supposed to have a EGD done. Patient still complaining of some abdominal discomfort and episodes of vomiting and dry heaves. She did have a bowel movement yesterday with an enema. She denies any chest pain or shortness of breath. Denies any difficulty urinating. Objective - Vital Signs Vital signs: Vital Signs Temp 97.1 F L 08/20/16 07:00 Pulse 74 08/20/16 07:00 Resp 16 08/20/16 07:00 BP 185/91 08/20/16 07:00 Pulse Ox 97 08/20/16 07:00 Intake & Output 08/19/16 08/20/16 08/20/16 18:59 06:59 18:59 Intake Total 650 540 Balance 650 540 Weight 87.997 kg Intake: Oral 650 540 Other: Voiding Method Toilet # Voids 4 - Exam Head normocephalic Neck supple Lungs clear to auscultation bilaterally no wheezing or crackles Heart regular rate and rhythm S1-S2, no rub or gallop Abdomen is soft nondistended right upper quadrant tenderness Extremities no edema Neuro alert and orientated to 3 - Labs CBC & Chem 7: 08/20/16 07:04 08/20/16 07:00 Labs: Abnormal Lab Results - Last 24 Hours (Table) 08/20/16 Range/Units 07:00 Sodium 146 H (137-145) mmol/L Chloride 108 H (98-107) mmol/L Carbon Dioxide 21 L (22-30) mmol/L BUN 6 L (7-17) mg/dL Calcium 10.5 H (8.4-10.2) mg/dL AST 39 H (14-36) U/L Alkaline Phosphatase 146 H (38-126) U/L Total Protein 5.7 L (6.3-8.2) g/dL Albumin 3.2 L (3.5-5.0) g/dL Assessment and Plan Plan: 1. Acute on chronic cholecystitis: Now managed conservatively awaiting her surgeon to return for possible cholecystectomy on Saturday 2. History of pulmonary emboli: Currently off anticoagulation with Rivaroxaban. She was seen and evaluated by pulmonary during this admission and was cleared to discontinue Rivaroxaban 3. Essential hypertension: Blood pressure well-controlled 4. Nausea, vomiting, and abdominal pain: Managed symptomatically 5. Hypothyroidism 6. DVT prophylaxis with subcu heparin 7. Difficulty swallowing: Possibly EGD. Await surgery evaluation
[2016-08-20] MEDS: SODIUM CHLORIDE 0.9% 1,000 ML IV SCH ×2 (13:12→23:34)
[2016-08-20] MEDS: MORPHINE SULFATE 4 MG/ML SYRINGE IVP PRN ×3 (15:11→23:37)
--- NOTE | 2016-08-20 16:03 | P.PN ---
Progress Note - Text The patient is stable. Minimal discomfort now in the abdomen. Has been off her anticoagulants for about 3 days now. On examination the patient is awake alert the in no distress. Vitals are stable. Abdomen is soft. Epigastric tenderness but no guarding or rebound. Wbc's normal. LFTs almost down to normal. Bilirubin is 1.2 and stable. Impression cholelithiasis acute on chronic cholecystitis probably passed a common duct stone with the liver enzymes progressively improving. Recommendation we will discuss with Dr. Meredith and tentatively schedule her for her surgery tomorrow. Patient wonders if she would have an EGD as Dr. Osorio recommended previously in the perioperative period. End of dictation
--- NOTE | 2016-08-20 16:19 | P.PN ---
Subjective This is a very pleasant 56-year-old female patient who was admitted here on with complaints of abdominal discomfort and nausea and vomiting and diarrhea. She's had decreased appetite and weight loss. She has been complaining of difficulty in swallowing as well and recently had shingles in her mouth and throat. She has found to have acute cholecystitis and the plan is for EGD and cholecystectomy along with a hernia repair tomorrow. She does have a history of chronic bronchial asthma which is currently inactive and stable. She is seen on the surgical floor in follow-up today. She is sitting up in bed. She is awake and alert in no acute distress. She continues with some vague abdominal discomfort. She is maintaining good O2 saturations in the upper 90s on room air. Currently afebrile. Objective - Vital Signs Vital signs: Vital Signs Temp 97.1 F L 08/20/16 07:00 Pulse 74 08/20/16 07:00 Resp 16 08/20/16 07:00 BP 185/91 08/20/16 07:00 Pulse Ox 97 08/20/16 07:00 Intake & Output 08/19/16 08/20/16 08/20/16 18:59 06:59 18:59 Intake Total 650 540 250 Balance 650 540 250 Weight 87.997 kg 87.997 kg Intake: Oral 650 540 250 Other: Voiding Method Toilet # Voids 4 - Exam GENERAL EXAM: Morbidly obese. Alert, active, comfortable in no apparent distress. HEAD: Normocephalic. EYES: Normal reaction of pupils, equal size. NOSE: Clear with pink turbinates. THROAT: No erythema or exudates. NECK: No masses, no JVD. CHEST: No chest wall deformity. LUNGS: Equal air entry with no crackles, wheeze, rhonchi or dullness. CVS: S1 and S2 normal with no audible murmurs, regular rhythm. ABDOMEN: Soft, normal bowel sounds, no guarding or rigidity. SPINE: No scoliosis or deformity SKIN: No rashes CENTRAL NERVOUS SYSTEM: No focal deficits, tone is normal in all 4 extremities. Extremities: There is trace peripheral edema. No clubbing, no cyanosis. Peripheral pulses are intact. - Labs CBC & Chem 7: 08/20/16 07:04 08/20/16 07:00 Labs: Abnormal Lab Results - Last 24 Hours (Table) 08/20/16 Range/Units 07:00 Sodium 146 H (137-145) mmol/L Chloride 108 H (98-107) mmol/L Carbon Dioxide 21 L (22-30) mmol/L BUN 6 L (7-17) mg/dL Calcium 10.5 H (8.4-10.2) mg/dL AST 39 H (14-36) U/L Alkaline Phosphatase 146 H (38-126) U/L Total Protein 5.7 L (6.3-8.2) g/dL Albumin 3.2 L (3.5-5.0) g/dL Assessment and Plan Plan: Impression: #1 Abdominal pain secondary to cholecystitis. The plan is for cholecystectomy tomorrow. #2 Periumbilical hernia. The plan is for hernia repair tomorrow. #3 Difficulty swallowing secondary to recent episode of shingles in her mouth and the plan is for EGD tomorrow. #4 Pulmonary embolism in May 2016 maintained on Xarelto. Currently on hold due to planned surgery. Most recent CT of the chest revealed resolved embolism. #5 Diabetes mellitus. #6 History of myocardial infarction. #7 Hypothyroidism. #8 Gastroesophageal reflux disease I. #9 Chronic mild intermittent asthma, currently inactive and stable. #10 Morbid obesity. Plan: The patient was seen and evaluated by Dr. Olsen. She is cleared for her surgery as planned tomorrow. We'll continue to follow up in the post operative period. We will assure she has incentive spirometer and encourage cough and deep breathing exercises. She is on heparin subcutaneous for DVT prophylaxis. We'll continue Protonix for GI prophylaxis. She is on antibiotics in the form of Zosyn. The plan is to resume her Xarelto is postoperative. She'll follow-up with Dr. Bay in regards to the length of the need for anticoagulation. We will continue to follow and make further recommendations based on her clinical status.
[2016-08-20] MEDS: HEPARIN SODIUM,PORCINE 5,000 UNIT/ML 1 ML VIAL SQ SCH (19:45)
[2016-08-21] MEDS: LEVOTHYROXINE 75 MCG TAB PO SCH (02:51)
[2016-08-21] MEDS: ONDANSETRON 4 MG/2 ML VIAL IVP PRN ×2 (02:59→07:27)
[2016-08-21] MEDS: MORPHINE SULFATE 4 MG/ML SYRINGE IVP PRN (07:26)
[2016-08-21] MEDS: PIPERACILLIN-TAZOBACTAM 3.375 GM in DEXTROSE/WATER 1 50ML.BAG IVPB SCH ×3 (07:27→23:20)
[2016-08-21 07:33] LABS: Basophils # (A) 0.1 k/uL (0-0.2); Basophils % (A) 1 %; CH 30.7; CHCM 33.4; Eosinophils # (A) 0.3 k/uL (0-0.7); Eosinophils % (A) 3 %; HCT 40.1 % (34.0-46.0); HDW 2.91; HGB 12.6 gm/dL (11.4-16.0); Luc # (Auto) 0.15; Luc % (Auto) 2; Lymphocytes % (A) 24 %; MCH 29.1 pg (25.0-35.0); MCHC 31.5 g/dL (31.0-37.0); MCV 92.2 fL (80.0-100.0); Mean Platelet Volume 9.5; Monocytes # (A) 0.5 k/uL (0-1.0); Monocytes % (A) 6 %; Neutrophils # (A) 5.4 k/uL (1.3-7.7); Neutrophils % (A) 64 %; RBC 4.35 m/uL (3.80-5.40); RDW 12.4 % (11.5-15.5); WBC 8.4 k/uL (3.8-10.6)
[2016-08-21] MEDS: HEPARIN SODIUM,PORCINE 5,000 UNIT/ML 1 ML VIAL SQ SCH ×3 (08:09→20:06)
[2016-08-21] MEDS: VERAPAMIL SR 180 MG TABLET.ER PO SCH (08:10)
[2016-08-21] MEDS: SODIUM CHLORIDE 0.9% 1,000 ML IV SCH ×2 (08:10→12:03)
[2016-08-21] MEDS: PANTOPRAZOLE 40 MG/10 ML VIAL IVP SCH (08:10)
[2016-08-21] MEDS: LISINOPRIL 10 MG TAB PO SCH (08:10)
[2016-08-21] MEDS ORDERED: IV FLUID CONTINUATION 400 ML IV ONE (08:14)
[2016-08-21 08:15] LABS: ALT 58 U/L (9-52); AST 38 U/L (14-36); Alkaline Phosphatase 145 U/L (38-126); Anion Gap 17 mmol/L; Blood Urea Nitrogen 6 mg/dL (7-17); Calcium 10.1 mg/dL (8.4-10.2); Carbon Dioxide 22 mmol/L (22-30); Chloride 106 mmol/L (98-107); Glucose 73 mg/dL (74-99); Non-African American GFR(MDRD) >60 (>60 ml/min/1.73 sqM); Potassium 3.8 mmol/L (3.5-5.1); Sodium 145 mmol/L (137-145); Total Bilirubin 1.4 mg/dL (0.2-1.3); Total Protein 6.1 g/dL (6.3-8.2)
--- NOTE | 2016-08-21 08:44 | P.PN ---
Progress Note - Text The patient's pain has improved. The patient will undergo laparoscopic cholecystectomy for acute on chronic cholecystitis.
[2016-08-21] MEDS ORDERED: PROPOFOL 10 MG/ML 20 ML VIAL IV ONE (09:24)
[2016-08-21] MEDS ORDERED: SUCCINYLCHOLINE CHLORIDE 100 MG/5 ML SYR IV ONE (09:24)
[2016-08-21] MEDS ORDERED: HYDROmorphone (PF) 1 MG/ML ONE (09:24)
[2016-08-21] MEDS ORDERED: LIDOCAINE 1% INJ 10MG/ML (20 ML MDV) ONE (09:24)
[2016-08-21] MEDS ORDERED: fentaNYL (PF) 50 MCG/ML 2 ML AMP ONE (09:24)
[2016-08-21] MEDS ORDERED: NEOSTIGMINE 1 MG/ML 10 ML VIAL ONE (09:24)
[2016-08-21] MEDS ORDERED: MIDAZOLAM 2 MG/2 ML VIAL ONE (09:24)
[2016-08-21] MEDS ORDERED: ROCURONIUM BROMIDE 10 MG/ML 10 ML VIAL IV ONE (09:24)
[2016-08-21] MEDS ORDERED: GLYCOPYRROLATE 0.2 MG/ML 2 ML VIAL ONE (09:24)
[2016-08-21] MEDS ORDERED: BUPIVACAIN-EPI 0.25%-1:200,000 30 ML VIAL SQ ONE ×2 (09:37→09:56)
[2016-08-21] MEDS ORDERED: NALOXONE 0.4 MG/ML 1 ML VIAL IV PRN (10:29)
[2016-08-21] MEDS ORDERED: LACTATED RINGERS 1,000 ML IV ONE (10:29)
--- NOTE | 2016-08-21 10:29 | P.OP ---
Date of Procedure: 08/21/16 Preoperative Diagnosis: Acute and chronic cholecystitis Postoperative Diagnosis: Acute and chronic cholecystitis Procedure(s) Performed: Laparoscopic cholecystectomy Anesthesia: JENNIFER Surgeon: Wilfredo Meredith Estimated Blood Loss (ml): 5 Pathology: other (Gallbladder) Condition: stable Disposition: PACU Description of Procedure: The patient was placed on the operating table. The patient received a general endotracheal tube anesthesia. The patients abdomen was prepped and draped in the usual sterile fashion. Through an infraumbilical stab incision, the fascia of the anterior abdominal wall was grasped with a pair of Kochers and then the Veress needle was placed in the peritoneal cavity. Position of the Veress needle was confirmed with positive drop test. The abdomen was then insufflated. After adequate insufflation, the 10 mm trocar was placed in the peritoneal cavity. Following this the laparoscope was placed in the peritoneal cavity. The patient was placed in the head-up, right side up position and then a 5 mm trocar was placed in the right lateral and right subcostal position under direct visualization. A 8 mm trocar was placed in the epigastric position. The gallbladder was grasped in the fundus and infundibulum. Traction on the gallbladder was placed in the lateral and the cephalad positions. The triangle of Calot was visualized.. The cystic duct was bluntly dissected until the union of the cystic duct and common bile duct was seen. The cystic duct was then divided and sealed with the Harmonic scissors. A PDS Endoloop was then placed throughout the cystic duct stump. The cystic artery divided and sealed with the Harmonic scissors. The gallbladder was then removed from the liver bed using Harmonic scissors. The gallbladder was then extracted through the epigastric port site. Operative field was checked for any bleeding spots and Harmonic scissors was used to coagulate the liver bed. The abdomen was irrigated. The trocars were removed. The skin was closed using interrupted 3-0 Vicryl suture. Dermabond dressing were applied. The patient tolerated the procedure well.
[2016-08-21] MEDS ORDERED: SODIUM CHLORIDE 0.9% 1,000 ML IV ONE (10:34)
[2016-08-21 11:00] LABS: Glucose,Whole Blood 102 mg/dL (75-99)
[2016-08-21 11:02] VITALS: RESP 16
[2016-08-21] MEDS ORDERED: HYDROmorphone 1 MG/ML 1 ML SYRINGE IVP ONE (11:06)
--- NOTE | 2016-08-21 15:13 | P.PN ---
Subjective This is a very pleasant 56-year-old female patient who was admitted here on with complaints of abdominal discomfort and nausea and vomiting and diarrhea. She's had decreased appetite and weight loss. She has been complaining of difficulty in swallowing as well and recently had shingles in her mouth and throat. She has found to have acute cholecystitis and the plan is for EGD and cholecystectomy along with a hernia repair tomorrow. She does have a history of chronic bronchial asthma which is currently inactive and stable. She is seen on the surgical floor in follow-up today. She is sitting up in bed. She is awake and alert in no acute distress. She continues with some vague abdominal discomfort. She is maintaining good O2 saturations in the upper 90s on room air. Currently afebrile. The patient is seen again today 08/21/16 in follow up. She did have a laparoscopic cholecystectomy this morning. She is doing well currently. Her pain is well controlled. She denies any shortness of breath, cough or congestion. She is pulling approximately 1000 mls on her incentive spirometer. Maintaining good O2 saturations in the upper 90's on room air. She is tolerating a clear liquid diet. Objective - Vital Signs Vital signs: Vital Signs Temp 97.4 F L 08/21/16 11:45 Pulse 83 08/21/16 13:00 Resp 16 08/21/16 11:45 BP 121/59 08/21/16 13:00 Pulse Ox 93 L 08/21/16 13:00 Intake & Output 08/20/16 08/21/16 08/21/16 18:59 06:59 18:59 Intake Total 840 600 Output Total 310 Balance 840 290 Weight 87.997 kg 87.997 kg Intake: IV 600 Intake, IV Titration 350 Amount Piperacillin-Tazobactam 3 50 .375 gm In Dextrose/Water 1 50ml.bag @ 12.5 mls/hr IVPB Q8HR LUISA Rx#: [id number] Sodium Chloride 0.9% 1, 300 000 ml @ 100 mls/hr IV . Q10H LUISA Rx#:[id number] Oral 490 0 Output: Urine 300 Estimated Blood Loss 10 Other: Voiding Method Toilet Toilet # Voids 1 1 - Exam GENERAL EXAM: Morbidly obese. Alert, active, comfortable in no apparent distress. HEAD: Normocephalic. EYES: Normal reaction of pupils, equal size. NOSE: Clear with pink turbinates. THROAT: No erythema or exudates. NECK: No masses, no JVD. CHEST: No chest wall deformity. LUNGS: Equal air entry with no crackles, wheeze, rhonchi or dullness. CVS: S1 and S2 normal with no audible murmurs, regular rhythm. ABDOMEN: Incisions clean dry, well approximated. Soft, normal bowel sounds, no guarding or rigidity. SPINE: No scoliosis or deformity SKIN: No rashes CENTRAL NERVOUS SYSTEM: No focal deficits, tone is normal in all 4 extremities. Extremities: There is trace peripheral edema. No clubbing, no cyanosis. Peripheral pulses are intact. - Labs CBC & Chem 7: 08/21/16 07:14 08/21/16 07:14 Labs: Abnormal Lab Results - Last 24 Hours (Table) 08/21/16 08/21/16 Range/Units 07:14 10:56 BUN 6 L (7-17) mg/dL Creatinine 0.50 L (0.52-1.04) mg/dL Glucose 73 L (74-99) mg/dL POC Glucose (mg/dL) 102 H (75-99) mg/dL Total Bilirubin 1.4 H (0.2-1.3) mg/dL AST 38 H (14-36) U/L ALT 58 H (9-52) U/L Alkaline Phosphatase 145 H (38-126) U/L Total Protein 6.1 L (6.3-8.2) g/dL Albumin 3.4 L (3.5-5.0) g/dL Assessment and Plan Plan: Impression: #1 Abdominal pain secondary to cholecystitis. Status post laparoscopic cholecystectomy. Post operateive day #0. #2 Periumbilical hernia. The plan is for hernia repair tomorrow. #3 Difficulty swallowing secondary to recent episode of shingles in her mouth and the plan is for EGD tomorrow. #4 Pulmonary embolism in May 2016 maintained on Xarelto. Currently on hold due to planned surgery. Most recent CT of the chest revealed resolved embolism. #5 Diabetes mellitus. #6 History of myocardial infarction. #7 Hypothyroidism. #8 Gastroesophageal reflux disease I. #9 Chronic mild intermittent asthma, currently inactive and stable. #10 Morbid obesity. Plan: The patient was seen and evaluated by Dr. Olsen. She is encouraged regarding the increased use of the incentive spirometer and encourage cough and deep breathing exercises. She is on heparin subcutaneous for DVT prophylaxis. We'll continue Protonix for GI prophylaxis. She is on antibiotics in the form of Zosyn. We will continue to follow and make further recommendations based on her clinical status. The plan is to resume her Xarelto when OK'd by surgical services. She'll follow-up with Dr. Bay in regards to the length of the need for anticoagulation.
[2016-08-21] MEDS: HYDROmorphone 1 MG/ML 1 ML SYRINGE IVP PRN (15:54)
--- NOTE | 2016-08-21 17:01 | P.PN ---
Subjective 56-year-old female with history of chronic cholecystitis presented with worsening abdominal pain and vomiting. She has had an abnormal HIDA scan outpatient. Surgery postponed due to diagnosis of pulmonary emboli in May. She had been on Xarelto. A repeat CTA of the chest shows no evidence of a PE. Patient was evaluated by pulmonary service and Xarelto has been okayed to be discontinued. She's being followed by surgical service in regards to having her gallbladder removed. Patient's surgeon is usually Dr. Peck and he is out of town and will be back on Saturday. Patient was also told in outpatient setting that she could have an EGD completed. We'll await surgeon evaluation for his planned regarding cholecystectomy an EGD. Patient reports she has had some difficulty with swallowing and was supposed to have a EGD done. Patient still complaining of some abdominal discomfort and episodes of vomiting and dry heaves. She did have a bowel movement yesterday with an enema. She denies any chest pain or shortness of breath. Denies any difficulty urinating. Objective - Vital Signs Vital signs: Vital Signs Temp 97.4 F L 08/21/16 11:45 Pulse 83 08/21/16 16:00 Resp 16 08/21/16 16:00 BP 121/59 08/21/16 13:00 Pulse Ox 93 L 08/21/16 13:00 Intake & Output 08/20/16 08/21/16 08/21/16 18:59 06:59 18:59 Intake Total 840 600 Output Total 610 Balance 840 -10 Weight 87.997 kg 87.997 kg Intake: IV 600 Intake, IV Titration 350 Amount Piperacillin-Tazobactam 3 50 .375 gm In Dextrose/Water 1 50ml.bag @ 12.5 mls/hr IVPB Q8HR LUISA Rx#: [id number] Sodium Chloride 0.9% 1, 300 000 ml @ 100 mls/hr IV . Q10H LUISA Rx#:[id number] Oral 490 0 Output: Urine 600 Estimated Blood Loss 10 Other: Voiding Method Toilet Toilet # Voids 1 1 - Exam HEENT head normocephalic and atraumatic Neck is supple no JVD no goiter no lymphadenopathy Chest is clear to auscultation no wheezing Cardiac exam reveals regular heart sounds no murmurs Abdomen is soft nontender no organomegaly Extremity exam reveals no edema no cyanosis or clubbing - Labs CBC & Chem 7: 08/21/16 07:14 08/21/16 07:14 Labs: Abnormal Lab Results - Last 24 Hours (Table) 08/21/16 08/21/16 Range/Units 07:14 10:56 BUN 6 L (7-17) mg/dL Creatinine 0.50 L (0.52-1.04) mg/dL Glucose 73 L (74-99) mg/dL POC Glucose (mg/dL) 102 H (75-99) mg/dL Total Bilirubin 1.4 H (0.2-1.3) mg/dL AST 38 H (14-36) U/L ALT 58 H (9-52) U/L Alkaline Phosphatase 145 H (38-126) U/L Total Protein 6.1 L (6.3-8.2) g/dL Albumin 3.4 L (3.5-5.0) g/dL Assessment and Plan Plan: 1. Acute on chronic cholecystitis: Patient underwent laparoscopic cholecystectomy today she is doing well postoperatively 2. History of pulmonary emboli: Currently off anticoagulation with Rivaroxaban. She was seen and evaluated by pulmonary during this admission and was cleared to discontinue Rivaroxaban 3. Essential hypertension: Blood pressure well-controlled 4. Nausea, vomiting, and abdominal pain: Managed symptomatically 5. Hypothyroidism 6. DVT prophylaxis with subcu heparin Possible discharge to home tomorrow if stable She will follow-up with her human resources benefits administrator Dr. Bay on Saturday he will decide if she needs to be back on Xarelto or not
[2016-08-21] MEDS: HYDROcodone/APAP 5-325MG 1 EACH TAB PO PRN (21:13)
[2016-08-22] MEDS: ONDANSETRON 4 MG/2 ML VIAL IVP PRN (02:46)
[2016-08-22] MEDS: LEVOTHYROXINE 75 MCG TAB PO SCH (05:04)
[2016-08-22] MEDS: HYDROcodone/APAP 5-325MG 1 EACH TAB PO PRN ×2 (05:04→15:10)
[2016-08-22 07:35] LABS: ALT 63 U/L (9-52); AST 62 U/L (14-36); Alkaline Phosphatase 182 U/L (38-126); Anion Gap 15 mmol/L; Basophils % (A) 1 %; Blood Urea Nitrogen 4 mg/dL (7-17); CH 30.8; CHCM 33.6; Calcium 9.8 mg/dL (8.4-10.2); Carbon Dioxide 23 mmol/L (22-30); Chloride 104 mmol/L (98-107); Eosinophils # (A) 0.1 k/uL (0-0.7); Eosinophils % (A) 1 %; Glucose 72 mg/dL (74-99); HCT 37.6 % (34.0-46.0); HDW 2.93; HGB 12.3 gm/dL (11.4-16.0); Luc # (Auto) 0.08; Luc % (Auto) 1; Lymphocytes # (A) 1.1 k/uL (1.0-4.8); Lymphocytes % (A) 14 %; MCHC 32.6 g/dL (31.0-37.0); MCV 92.1 fL (80.0-100.0); Mean Platelet Volume 9.6; Monocytes # (A) 0.5 k/uL (0-1.0); Monocytes % (A) 6 %; Neutrophils % (A) 77 %; Non-African American GFR(MDRD) >60 (>60 ml/min/1.73 sqM); Potassium 3.5 mmol/L (3.5-5.1); RBC 4.09 m/uL (3.80-5.40); RDW 12.3 % (11.5-15.5); Sodium 142 mmol/L (137-145); Total Bilirubin 1.2 mg/dL (0.2-1.3); Total Protein 5.6 g/dL (6.3-8.2); WBC 7.8 k/uL (3.8-10.6)
[2016-08-22] MEDS: HEPARIN SODIUM,PORCINE 5,000 UNIT/ML 1 ML VIAL SQ SCH (08:45)
[2016-08-22] MEDS: VERAPAMIL SR 180 MG TABLET.ER PO SCH (08:45)
[2016-08-22] MEDS: LISINOPRIL 10 MG TAB PO SCH (08:46)
[2016-08-22] MEDS: PANTOPRAZOLE 40 MG/10 ML VIAL IVP SCH (08:46)
[2016-08-22] MEDS: HYDROmorphone 1 MG/ML 1 ML SYRINGE IVP PRN (09:03)
[2016-08-22] MEDS: PIPERACILLIN-TAZOBACTAM 3.375 GM in DEXTROSE/WATER 1 50ML.BAG IVPB SCH ×2 (11:17→15:13)
[2016-08-22 14:47] VITALS: BP 135/74; PULSE 75; TEMP 97.8
--- NOTE | 2016-08-22 15:39 | P.PN ---
Subjective This is a very pleasant 56-year-old female patient who was admitted here on with complaints of abdominal discomfort and nausea and vomiting and diarrhea. She's had decreased appetite and weight loss. She has been complaining of difficulty in swallowing as well and recently had shingles in her mouth and throat. She has found to have acute cholecystitis and the plan is for EGD and cholecystectomy along with a hernia repair tomorrow. She does have a history of chronic bronchial asthma which is currently inactive and stable. She is seen on the surgical floor in follow-up today. She is sitting up in bed. She is awake and alert in no acute distress. She continues with some vague abdominal discomfort. She is maintaining good O2 saturations in the upper 90s on room air. Currently afebrile. The patient is seen again today 08/21/16 in follow up. She did have a laparoscopic cholecystectomy this morning. She is doing well currently. Her pain is well controlled. She denies any shortness of breath, cough or congestion. She is pulling approximately 1000 mls on her incentive spirometer. Maintaining good O2 saturations in the upper 90's on room air. She is tolerating a clear liquid diet. The patient is seen again today to 2016 in follow-up on the regular surgical floor. She is status post laparoscopic cholecystectomy. Post operative day # 1. She is awake and alert in no acute distress. She denies any shortness of breath, cough or congestion. She is maintaining good O2 saturations in the 90s on room air. She is doing well with her incentive spirometer. Her pain is well controlled. She is hoping to go home today. Objective - Vital Signs Vital signs: Vital Signs Temp 97.8 F 08/22/16 14:47 Pulse 75 08/22/16 14:47 Resp 16 08/22/16 14:47 BP 135/74 08/22/16 14:47 Pulse Ox 93 L 08/22/16 14:47 Intake & Output 08/21/16 08/22/16 08/22/16 18:59 06:59 18:59 Intake Total 960 360 Output Total 610 600 Balance 350 -240 Weight 87.997 kg 87.997 kg Intake: IV 600 Oral 360 360 Output: Urine 600 600 Estimated Blood Loss 10 Other: Voiding Method Toilet Toilet Toilet # Voids 3 1 3 - Exam GENERAL EXAM: Morbidly obese. Alert, active, comfortable in no apparent distress. HEAD: Normocephalic. EYES: Normal reaction of pupils, equal size. NOSE: Clear with pink turbinates. THROAT: No erythema or exudates. NECK: No masses, no JVD. CHEST: No chest wall deformity. LUNGS: Equal air entry with no crackles, wheeze, rhonchi or dullness. CVS: S1 and S2 normal with no audible murmurs, regular rhythm. ABDOMEN: Incisions clean dry, well approximated. Soft, normal bowel sounds, no guarding or rigidity. SPINE: No scoliosis or deformity SKIN: No rashes CENTRAL NERVOUS SYSTEM: No focal deficits, tone is normal in all 4 extremities. Extremities: There is trace peripheral edema. No clubbing, no cyanosis. Peripheral pulses are intact. - Labs CBC & Chem 7: 08/22/16 06:58 08/22/16 06:58 Labs: Abnormal Lab Results - Last 24 Hours (Table) 08/22/16 Range/Units 06:58 BUN 4 L (7-17) mg/dL Glucose 72 L (74-99) mg/dL AST 62 H (14-36) U/L ALT 63 H (9-52) U/L Alkaline Phosphatase 182 H (38-126) U/L Total Protein 5.6 L (6.3-8.2) g/dL Albumin 3.0 L (3.5-5.0) g/dL Assessment and Plan Plan: Impression: #1 Abdominal pain secondary to cholecystitis. Status post laparoscopic cholecystectomy. Post operateive day #1. #2 Periumbilical hernia. #3 Difficulty swallowing secondary to recent episode of shingles in her mouth and the plan is for EGD tomorrow. #4 Pulmonary embolism in May 2016 maintained on Xarelto. Currently on hold due to planned surgery. Most recent CT of the chest revealed resolved embolism. #5 Diabetes mellitus. #6 History of myocardial infarction. #7 Hypothyroidism. #8 Gastroesophageal reflux disease I. #9 Chronic mild intermittent asthma, currently inactive and stable. #10 Morbid obesity. Plan: The patient was seen and evaluated by Dr. Olsen. She is cleared for discharge from the pulmonary standpoint. She is encouraged regarding the increased use of the incentive spirometer and encourage cough and deep breathing exercises. We will resume her Xarelto today. She'll follow-up with Dr. Bay on 08/24/2016.
--- NOTE | 2016-08-22 16:57 | P.DS ---
Providers Date of admission: 08/17/16 19:05 Expected date of discharge: 08/22/16 Attending physician: Mandi Washington Consults: 08/18/16 14:14 Consult Physician Routine Consulting Provider: David Bay Consult Reason/Comments: Discontinue anticoagulation? Do you want consulting provider notified?: Yes Primary care physician: Shira Velasquez Hospital Course: Diagnosis on discharge #1 chronic cholecystitis status post laparoscopic cholecystectomy during this admission #2 periumbilical hernia #3 history of pulmonary embolism diagnosed in May 2016 patient has been maintained on Xarelto since then. Xarelto was held for surgery patient will resume Xarelto today #4 underlying history of diabetes mellitus #5 underlying history of coronary artery disease #6 underlying history of hypothyroidism Hospital course Patient is a 56-year-old female who was admitted to [facility] with abdominal pain She was evaluated by Dr. Osorio she has known history of chronic cholecystitis she underwent laparoscopic cholecystectomy without any reported complications. There was minimal elevation in liver enzymes that will be followed as outpatient Patient has a known history of pulmonary embolism diagnosed in May 2016 she was maintained on Xarelto which was held for surgery patient will resume taking Xarelto at the day of discharge She will follow-up with her primary care physician at [facility] she will also follow-up with Dr. Bay on 08/24/2016 Patient Condition at Discharge: Fair Plan - Discharge Summary Discharge Medication List Verapamil HCl [Verapamil ER] 180 mg PO DAILY 12/09/13 [History] Albuterol Nebulized [Ventolin Nebulized] 2.5 mg INHALATION QID PRN 08/17/16 [ History] Levothyroxine Sodium [Synthroid] 150 mcg PO DAILY 08/17/16 [History] Omeprazole [PriLOSEC] 20 mg PO DAILY 08/17/16 [History] Ondansetron Odt [Zofran ODT] 4 mg PO Q8HR PRN 08/17/16 [History] Ramipril [Altace] 2.5 mg PO DAILY 08/17/16 [History] Rivaroxaban [Xarelto] 20 mg PO DAILY 08/17/16 [History] Follow up Appointment(s)/Referral(s): Shira Velasquez DO [Primary Care Provider] - 08/30/16 11:00 am Wilfredo Meredith MD [STAFF PHYSICIAN] - 08/28/16 1:40 pm
[2016-08-22] MEDS ORDERED: RIVAROXABAN 10 MG TAB PO SCH (17:30)
== END 2016-08-22 17:37 | disposition home or self-care (01) | DRG 419 ==
LOC: EC 14:48 → 3SUR 19:05
PROVIDERS: ADMIT Internal Medicine; ATTEND Internal Medicine
PROC: 0FT44ZZ Resection of Gallbladder, Percutaneous Endoscopic Approach (ICD-10-PCS; principal; 2016-08-21 09:45)
DX: K81.0 Acute cholecystitis (principal); R13.10 Dysphagia, unspecified; I10 Essential (primary) hypertension; K81.1 Chronic cholecystitis; E11.9 Type 2 diabetes mellitus without complications; K59.00 Constipation, unspecified; R63.0 Anorexia; E03.9 Hypothyroidism, unspecified; E86.0 Dehydration; K21.9 Gastro-esophageal reflux disease without esophagitis; I25.2 Old myocardial infarction; J45.20 Mild intermittent asthma, uncomplicated; K42.9 Umbilical hernia without obstruction or gangrene; I25.10 Atherosclerotic heart disease of native coronary artery without angina pectoris; M19.90 Unspecified osteoarthritis, unspecified site; Z86.19 Personal history of other infectious and parasitic diseases; Z86.711 Personal history of pulmonary embolism; Z98.42 Cataract extraction status, left eye; Z98.41 Cataract extraction status, right eye; Z98.1 Arthrodesis status; Z90.49 Acquired absence of other specified parts of digestive tract; Z90.710 Acquired absence of both cervix and uterus; Z79.01 Long term (current) use of anticoagulants; Z79.899 Other long term (current) drug therapy; Z86.59 Personal history of other mental and behavioral disorders; W19.XXXA Unspecified fall, initial encounter
CPT/HCPCS: 36415; 71275; 76705; 80053; 81001; 82550; 82553; 82565; 83605; 83735; 83880; 84100; 84443; 84484; 84520; 85025; 85610; 85730; 87086; 88304; 93005; 94760; 96361; 96374; 96375; 99285

== ENCOUNTER → 2016-09-14 | Outpatient (CLI) | payer BC, MEDICARE ==
--- NOTE | 2016-09-14 14:01 | MM ---
Reason for exam: additional evaluation requested from prior study. Last mammogram was performed 2 years and 2 months ago. History: Patient is postmenopausal. Family history of premenopausal breast cancer in maternal grandmother at age 33, breast cancer in maternal cousin, and premenopausal breast cancer in mother at age 30. Benign cyst aspiration of the left breast. Physical Findings: Nurse did not find any significant physical abnormalities on exam. MG Diagnostic Mammo w CAD TITUS Bilateral CC and MLO view(s) were taken. Prior study comparison: July 02, 2014, right breast MG work up mamm w CAD RT. June 21, 2014, bilateral MG screening mammo w CAD. The breast tissue is almost entirely fat. Right axillary lymph node unchanged from 2012. No significant new findings when compared with previous films. These results were verbally communicated with the patient and result sheet given to the patient on 09/14/16. ASSESSMENT: Benign, BI-RAD 2 RECOMMENDATION: Routine screening mammogram of both breasts in 1 year.
== END | disposition home or self-care (01) ==
LOC: RADMAMWWP 12:57
PROVIDERS: ATTEND Family Medicine
DX: R92.8 Other abnormal and inconclusive findings on diagnostic imaging of breast (principal)

== ENCOUNTER → 2016-10-05 | Outpatient (CLI) | payer BC, MEDICARE ==
[2016-10-05 11:09] LABS: Non-African American GFR(MDRD) >60 (>60 ml/min/1.73 sqM)
--- NOTE | 2016-10-05 16:27 | MR ---
EXAMINATION TYPE: MR abdomen wo/w con DATE OF EXAM: 10/05/2016 1:08 PM COMPARISON: Outside CT report dated 08/30/2016 describing a 2 mm calcification in the pancreatic head. Also, prior CTs from 06/13/2016 and 12/09/2013 HISTORY: 56-year-old female abnormal abdominal images on CT. Technique: Multiplanar, multisequence images of the abdomen were obtained before and after administra tion of 17 mL intravenous MultiHance gadolinium contrast. FINDINGS: The heart is normal size. The liver is enlarged measuring 19.2 cm craniocaudal. There is some loss of signal on the out of phas e T1-weighted sequence suggesting some degree of underlying fatty infiltration. No abnormal T2 bright or enhancing liver lesion. Bile duct is normal caliber. Portal venous system is patent. Adrenal glands and spleen appear within normal limits. The questioned 5 mm area of calcification in the medial pancreatic head was present dating back to 05/2014 suggesting a benign etiology but is not apparent on MRI. No suspicious pancreatic lesion or d uctal dilatation. Diffuse tiny subcentimeter cysts within both kidneys. No hydronephrosis. No upper abdominal lymphadenopathy, ascites fluid, or gross bowel abnormality. IMPRESSION: 1. Hepatomegaly. Signal characteristics suggest some degree of underlying hepatic steatosis. 2. The 5 mm calcification in the medial pancreatic head is not apparent by MRI. Given stability datin g back to CT of 12/09/2013, a benign etiology such as dystrophic calcification is suggested. No suspic ious pancreatic lesion.
== END | disposition home or self-care (01) ==
LOC: RADMRIMAIN 10:48
PROVIDERS: ATTEND Family Medicine
DX: K86.89 Other specified diseases of pancreas (principal); R16.0 Hepatomegaly, not elsewhere classified
CPT/HCPCS: 82565; 74183; A9577

== ENCOUNTER → 2017-01-30 | Outpatient (CLI) | payer BC, MEDICARE ==
[2017-01-30 13:17] LABS: Blood Urea Nitrogen 12 mg/dL (7-17); Non-African American GFR(MDRD) >60 (>60 ml/min/1.73 sqM)
== END | disposition home or self-care (01) ==
LOC: LABWHC1 12:20
PROVIDERS: ATTEND Otolaryngology
DX: H91.92 Unspecified hearing loss, left ear (principal)
CPT/HCPCS: 36415; 82565; 84520

== ENCOUNTER → 2017-02-01 | Outpatient (CLI) | payer BC, MEDICARE ==
--- NOTE | 2017-02-01 08:44 | MR ---
EXAMINATION TYPE: MR iac wo con DATE OF EXAM: 02/01/2017 COMPARISON: Prior MRI brain April 25, 2012. HISTORY: left sided hearing loss and vertigo per order. Additional symptoms of dizziness and balance issues per patient. TECHNIQUE: Multiplanar, multisequence imaging of the brain and brainstem is performed without IV cont rast. Exam is noted suboptimal as due to claustrophobia patient was unable to complete the entire ord ered sequence including dedicated internal auditory canal imaging sequences and postcontrast sequence s FINDINGS: Diffusion weighted images demonstrate no evidence of a recent infarct or other diffusion abnormality. There is no worrisome extra-axial fluid collection. The ventricular system and cisternal spaces are normal in size and appearance. The brain volume is age appropriate. T2 axial weighted images are sig nificantly degraded by motion artifact. Flair axial images were not performed due to premature termin ation of study. There are some scattered foci of T2 hyperintensity seen throughout the white matter b ilaterally. Midline structures demonstrate normal morphology. The craniocervical junction appears within normal limits. IMPRESSION: Suboptimal essentially incomplete study. Mild to moderate white matter changes likely on basis of product of chronic small vessel ischemic change are felt present and noted.
== END | disposition home or self-care (01) ==
LOC: RADMRIMAIN 07:37
PROVIDERS: ATTEND Otolaryngology
DX: R42 Dizziness and giddiness (principal)
CPT/HCPCS: 70551

== ENCOUNTER 2017-07-24 07:09 | Day surgery (SDC) | payer BC, MEDICARE ==
[2017-07-17 15:47] VITALS: BMI 43.9
[~2017-07-24 07:09] MED LIST: DEXAMETHASONE SOD PHOSPHATE 4 MG/ML 1 ML VIAL IV ONE; FAMOTIDINE 20 MG/2 ML VIAL IV ONE; LACTATED RINGERS 1,000 ML IV SCH; LIDOCAINE 1% 20 ML VIAL (10MG/ML) FOR IV START INTRADERMA PRN; ONDANSETRON 4 MG/2 ML VIAL IVP ONE; Pre Op ABX Message 1 EACH MISC MISCELLANE ONE; fentaNYL (PF) 50 MCG/ML 2 ML AMP IV PRN
[2017-07-24] MEDS ORDERED: SCOPOLAMINE 1.5MG/72HR PATCH TRANSDERM ONE (08:16)
[2017-07-24] MEDS ORDERED: ONDANSETRON 4 MG/2 ML VIAL IVP ONE (08:16)
[2017-07-24 08:25] LABS: Glucose,Whole Blood 98 mg/dL (75-99)
[2017-07-24] MEDS ORDERED: SUCCINYLCHOLINE CHLORIDE VIAL 200 MG/10 ML VIAL IV ONE (08:34)
[2017-07-24] MEDS ORDERED: MIDAZOLAM 2 MG/2 ML VIAL ONE (08:34)
[2017-07-24] MEDS ORDERED: PROPOFOL 10 MG/ML 20 ML VIAL IV ONE (08:34)
[2017-07-24] MEDS ORDERED: LIDOCAINE 1% INJ 10MG/ML (20 ML MDV) ONE (08:34)
[2017-07-24] MEDS ORDERED: fentaNYL (PF) 50 MCG/ML 2 ML AMP ONE (08:34)
--- NOTE | 2017-07-24 09:04 | P.OP ---
Date of Procedure: 07/24/17 Preoperative Diagnosis: lingual tonsillar hypertrophy Postoperative Diagnosis: Same Procedure(s) Performed: Direct microlaryngoscopy with biopsy lingual tonsils Anesthesia: JENNIFER Surgeon: Pablito Fairbanks Estimated Blood Loss (ml): 3 Pathology: other (Lingual tonsil biopsy) Condition: stable Disposition: PACU Indications for Procedure: This is a 57-year-old white female who has chronic dysphagia. She has noted lingual tonsillar hypertrophy on flexible laryngoscopy and also nodularity on MRI of the cervical spine at the base of tongue. Operative Findings: Diffuse [id number] lingual tonsillar hypertrophy Description of Procedure: Patient was brought in the operative suite and placed in a supine position. The patient underwent induction of general anesthesia with oral endotracheal intubation without difficulty. The patient was prepped and draped in usual aseptic fashion. The tooth guard was placed. Base of tongue was palpated digitally with no focal masses noted other than the diffuse lingual tonsillar hypertrophy. Direct laryngoscopy was then performed with systematic evaluation of the base of tongue vallecula both piriform sinuses post cricoid area and endolarynx. With the base of tongue/vallecula in good visualization the laryngoscope was placed in suspension and the microscope was brought into position for visualization of the base of tongue. The lingual tonsils showed diffuse hypertrophy and biopsies were taken at the right and left base of tongue /lingual tonsils. No focal abnormality was noted otherwise. Hemostasis was gained spontaneously. Once hemostasis was obtained the laryngoscope and tooth guard were removed. The patient was allowed to emerge from general anesthesia having tolerated procedure well was extubated in the operating suite and transferred to postop recovery area in satisfactory she.
[2017-07-24 09:23] VITALS: TEMP 96.8
[2017-07-24 09:32] VITALS: RESP 18
[2017-07-24 10:36] VITALS: BP 108/58; PULSE 59
== END 2017-07-24 11:16 | disposition home or self-care (01) ==
LOC: OR 07:09
PROVIDERS: ATTEND Otolaryngology
DX: J35.1 Hypertrophy of tonsils (principal); R13.10 Dysphagia, unspecified; I10 Essential (primary) hypertension; E11.9 Type 2 diabetes mellitus without complications; D86.9 Sarcoidosis, unspecified; E06.9 Thyroiditis, unspecified; K76.0 Fatty (change of) liver, not elsewhere classified; M35.00 Sjogren syndrome, unspecified; M19.90 Unspecified osteoarthritis, unspecified site; K21.9 Gastro-esophageal reflux disease without esophagitis; G43.909 Migraine, unspecified, not intractable, without status migrainosus; Z86.711 Personal history of pulmonary embolism; Z79.84 Long term (current) use of oral hypoglycemic drugs; Z79.890 Hormone replacement therapy; Z79.891 Long term (current) use of opiate analgesic; Z79.899 Other long term (current) drug therapy; Z88.6 Allergy status to analgesic agent; Z88.2 Allergy status to sulfonamides; Z88.8 Allergy status to other drugs, medicaments and biological substances; Z88.1 Allergy status to other antibiotic agents; Z91.048 Other nonmedicinal substance allergy status
CPT/HCPCS: 88305; 31536; J2250; J0330; J2405; J2001; J3010; J2704

== ENCOUNTER → 2017-08-09 | Outpatient (CLI) | payer BC, MEDICARE ==
--- NOTE | 2017-08-09 11:55 | FL ---
Modified barium swallow. HISTORY: Dysphagia. Modified barium swallow was performed with the department of speech pathology. The patient was prese nted with various consistencies of barium. There is no evidence for aspiration or penetration. Full report is to follow from the department of speech pathology. Impression: No evidence for aspiration or penetration. Mild residual seen within the vallecula.
== END | disposition home or self-care (01) ==
LOC: RADFLMAIN 10:44
PROVIDERS: ATTEND Otolaryngology
DX: R13.10 Dysphagia, unspecified (principal)
CPT/HCPCS: 74230

== ENCOUNTER → 2018-04-05 | Outpatient (CLI) | payer BC, MEDICARE ==
--- NOTE | 2018-04-05 18:01 | CT ---
EXAMINATION TYPE: CT chest wo con DATE OF EXAM: 04/05/2018 COMPARISON: 08/06/2016 HISTORY: shortness of breath. CT DLP: 875.2 mGycm. Automated Exposure Control for Dose Reduction was Utilized. TECHNIQUE: CT scan of the thorax is performed without IV contrast. FINDINGS: LUNGS: There are scattered areas of subsegmental atelectasis. No focal consolidation. The lungs are g rossly clear, there is no concerning parenchymal mass or nodule identified. There is no pleural eff usion or pneumothorax seen. The tracheobronchial tree is patent. MEDIASTINUM: Lack of IV contrast is noted to limit evaluation for mediastinal and especially hilar ad enopathy. The main pulmonary artery is enlarged measuring 3.0 cm. There are no definitive greater david n 1 cm hilar or mediastinal lymph nodes. No cardiomegaly or pericardial effusion is seen. OTHER: Within the abdomen there is partial visualization of hepatic steatosis, surgical absence of th e gallbladder, surgical clip adjacent to the pancreatic head as there is no pancreatic ductal dilatat ion, and a splenule. An indeterminant right axillary lymph node measures 1.0 cm in short axis on series 3 image 23. This w as noted on the prior chest CT of 2017 and diagnostic mammogram was performed subsequently stating th e right axillary lymph node was unchanged from 2012. Mild multilevel degenerative changes of the thor acic spine are noted. IMPRESSION: 1. Few minimal scattered areas of subsegmental atelectasis. No focal consolidation, pleural effusion or pneumothorax. Main pulmonary artery is mildly enlarged and may represent pulmonary arterial hypert ension in the appropriate clinical setting. 2. Hepatic steatosis and stable prominent right axillary lymph node.
== END | disposition home or self-care (01) ==
LOC: RADCTMAIN 10:44
PROVIDERS: ATTEND Family Medicine
DX: J98.11 Atelectasis (principal)
CPT/HCPCS: 71250

== ENCOUNTER → 2018-04-17 | Outpatient (CLI) | payer BC, MEDICARE ==
--- NOTE | 2018-04-17 18:07 | MR ---
EXAMINATION TYPE: MR lumbar spine wo con DATE OF EXAM: 04/17/2018 COMPARISON: None HISTORY: 58-year-old female with low back pain and stiffness, Sciatica TECHNIQUE: Multiplanar, multisequence images of the lumbar spine were acquired. Technologist notes th at the patient was claustrophobic and in pain. Patient was unable to complete the T1 axial series. Findings: Vertebral body heights are preserved and alignment is maintained. There is mild to moderate intervertebral disc desiccation throughout with disc space narrowing especi ally in the upper lumbar spine and vacuum phenomenon at L1-L2 and L2-L3. Bulging discs are present especially in the upper lumbar spine. Facet arthropathy is present throughout. No prevertebral or paravertebral soft tissue abnormality. Conus medullaris is normal. No suspicious bone marrow replacement. Scattered fatty Modic type II endplate changes present at T12- L1 and L1-L2. Some edematous Modic type I endplate changes present anteriorly at L2-L3. At T12-L1, no spinal canal or foraminal stenosis. At L1-L2, there is diffuse disc bulge with ligamentum flavum thickening and facet arthropathy. Change s cause mild spinal canal stenosis without significant neural foraminal stenosis. At L2-L3, there is bulging disc with ligamentum flavum thickening and mild facet arthropathy. Changes result in minimal bilateral inferior foraminal narrowing. There is ventral impression on the thecal sac without significant spinal canal stenosis. At L3-L4, mild facet arthropathy and minimal bulging disc encroaching onto the inferior neural forame n on both sides no significant spinal canal stenosis. At L4-L5, bulging disc and facet arthropathy. No significant spinal canal or foraminal stenosis. At L5-S1, facet arthropathy without significant canal or foraminal stenosis. IMPRESSION: 1. Moderate multilevel degenerative disc disease especially in the upper to mid lumbar spine. There i s edematous Modic type I endplate change anteriorly at L2-L3. 2. No vertebral compression collapse or malalignment. 3. Additional scattered facet arthropathy. Overall changes result in mild spinal canal stenosis at L1 -L2. 4. There is also scattered mild inferior foraminal narrowing as outlined above. No high-grade neurofo raminal stenosis seen.
== END | disposition home or self-care (01) ==
LOC: RADMRIMAIN 11:29
PROVIDERS: ATTEND Family Medicine
DX: M48.061 Spinal stenosis, lumbar region without neurogenic claudication (principal); M51.36 Other intervertebral disc degeneration, lumbar region; M46.86 Other specified inflammatory spondylopathies, lumbar region; M54.30 Sciatica, unspecified side
CPT/HCPCS: 72148

== ENCOUNTER → 2018-04-25 | Outpatient (CLI) | payer BC, MEDICARE ==
--- NOTE | 2018-04-28 09:36 | MM ---
Reason for exam: screening (asymptomatic). Last mammogram was performed 1 year and 7 months ago. History: Patient is postmenopausal. Family history of premenopausal breast cancer in maternal grandmother at age 33, breast cancer in maternal cousin, and premenopausal breast cancer in mother at age 30. Benign cyst aspiration of the left breast. Physical Findings: A clinical breast exam by your physician is recommended on an annual basis and results should be correlated with mammographic findings. MG 3D Screening Mammo W/Cad Bilateral CC and MLO view(s) were taken. Prior study comparison: September 14, 2016, bilateral MG diagnostic mammo w CAD TITUS. July 02, 2014, right breast MG work up mamm w CAD RT. There are scattered fibroglandular densities. There is no discrete abnormality. No significant changes when compared with prior studies. ASSESSMENT: Negative, BI-RAD 1 RECOMMENDATION: Routine screening mammogram of both breasts in 1 year.
== END | disposition home or self-care (01) ==
LOC: RADMAMWWP 10:10
PROVIDERS: ATTEND Family Medicine
DX: Z12.31 Encounter for screening mammogram for malignant neoplasm of breast (principal)
CPT/HCPCS: 77063; 77067

== ENCOUNTER → 2018-04-30 | Outpatient (CLI) | payer BC, MEDICARE ==
--- NOTE | 2018-04-30 09:31 | FL ---
ESOPHOGRAM. HISTORY: Dysphagia Esophagram was performed per the air contrast technique. The patient swallowed barium and effervesce nt crystals without difficulty or delay. Esophageal peristalsis and motility appear to be within normal limits. There is no evidence for filling defect, mass or diverticulum. No hiatal hernia seen. Subsequently single contrast cervical esophagram was performed which fails demonstrate evidence for a spiration penetration or mass. IMPRESSION: Unremarkable study.
== END ==
LOC: RADFLWHC 08:26
PROVIDERS: ATTEND Surgery
DX: R13.10 Dysphagia, unspecified (principal)
CPT/HCPCS: 74220

== ENCOUNTER 2018-09-16 18:34 | Emergency (ER) | payer BC, MEDICARE ==
--- NOTE | 2018-09-16 19:44 | ED ---
Arrhythmia/Palpitations HPI - General Chief Complaint: Arrhythmia/Palpitations Stated Complaint: SOB Time Seen by Provider: 09/16/18 19:28 Source: patient Mode of arrival: wheelchair Limitations: no limitations - History of Present Illness Initial Comments: Patient is a 58-year-old female who presents with chief complaint of palpitations. Patient states it is moving around for a long time however they're getting more frequent. The patient states the episodes last several hours at a time. She states that when she has the episodes, she experiences s hortness of breath and dizziness as well. She has a history of PEs, no longer on anticoagulation. She cannot identify any inciting factors. There are no aggravating or alleviating factors. Timing is intermittent. - Related Data Home Medications Medication Instructions Recorded Confirmed Verapamil HCl [Verapamil ER] 180 mg PO DAILY 12/09/13 09/16/18 Ramipril [Altace] 2.5 mg PO DAILY 08/17/16 09/16/18 Ergocalciferol [Vitamin D2 50,000 units PO WATSON 07/17/17 09/16/18 (DRISDOL)] HYDROcodone/APAP 7.5-325MG [[place] 1 tab PO BID 07/17/17 09/16/18 7.5-325] Hydroxychloroquine Sulfate 200 mg PO BID 07/17/17 09/16/18 [Plaquenil] Levothyroxine Sodium [Synthroid] 100 mcg PO DAILY 07/17/17 09/16/18 Pilocarpine HCl [Salagen] 7.5 mg PO TID 07/17/17 09/16/18 Ranitidine HCl 300 mg PO DAILY 07/17/17 09/16/18 Latanoprost/Pf [Latanoprost 0.005% 1 drop BOTH EYES DAILY 05/08/18 09/16/18 Eye Drop] Propranolol [Inderal] 10 mg PO DAILY PRN 05/08/18 09/16/18 sitaGLIPtin [Januvia] 100 mg PO DAILY 05/08/18 09/16/18 Atorvastatin [Lipitor] 10 mg PO HS 09/16/18 09/16/18 Allergies Allergy/AdvReac Type Severity Reaction Status Date / Time adhesive Allergy Rash/Hives Verified 09/16/18 20:34 aspirin Allergy Anaphylaxis Verified 09/16/18 20:34 gabapentin Allergy Rash/Hives Verified 09/16/18 20:34 NSAIDS (Non-Steroidal Allergy Rash/Hives Verified 09/16/18 20:34 Anti-Inflamma ciprofloxacin [From Cipro] AdvReac Rash/Hives Verified 09/16/18 20:34 ciprofloxacin HCl AdvReac Rash/Hives Verified 09/16/18 20:34 [From Cipro] steroids Allergy Rash/Hives Uncoded 09/16/18 18:57 sulfates Allergy Rash/Hives Uncoded 09/16/18 18:57 Review of Systems ROS Statement: Those systems with pertinent positive or pertinent negative responses have been documented in the HPI. ROS Other: All systems not noted in ROS Statement are negative. Cardiovascular: Reports: palpitations Past Medical History Past Medical History: Asthma, Diabetes Mellitus, Eye Disorder, GERD/Reflux, Myocardial Infarction ([place]), Osteoarthritis (OA), Pulmonary Embolus (PE), Rheumat oid Arthritis (RA), Thyroid Disorder Additional Past Medical History / Comment(s): PAST HX OF SHINGLES IN MOUTH AND THROAT. SJORGREN'S, glaucoma delores eyes Last Myocardial Infarction Date:: 05/16 History of Any Multi-Drug Resistant Organisms: None Reported Past Surgical History: Section, Cholecystectomy, Hernia Repair, Hysterectomy, Orthopedic Surgery Additional Past Surgical History / Comment(s): COLONOSCOPY, carpal tunnel, OVARIAN CYSTECTOMY. cataracts, cervical disc C6 replaced with plate and 4 screws. LT ANKLE SX Past Anesthesia/Blood Transfusion Reactions: Previous Problems w/ Anesthesia, Motion Sickness Additional Past Anesthesia/Blood Transfusion Reaction / Comment(s): "hard time waking up" and states difficult to lay flat Past Psychological History: Anxiety Smoking Status: Never smoker Past Alcohol Use History: None Reported Past Drug Use History: None Reported - Past Family History Mother Family Medical History: Cancer General Exam Limitations: no limitations General appearance: alert, in no apparent distress Head exam: Present: atraumatic, normocephalic Eye exam: Present: normal appearance ENT exam: Present: normal exam Neck exam: Present: normal inspection Respiratory exam: Present: normal lung sounds bilaterally. Absent: respiratory distress, wheezes Cardiovascular Exam: Present: regular rate, normal rhythm GI/Abdominal exam: Present: soft. Absent: distended, tenderness Rectal exam: Present: deferred Extremities exam: Present: normal inspection Back exam: Present: normal inspection Neurological exam: Present: alert, oriented X3, CN II-XII intact Psychiatric exam: Present: normal affect, normal mood Skin exam: Present: warm, dry, intact Course Vital Signs 09/16/18 09/16/18 18:54 22:13 Temperature 98.3 F Pulse Rate 79 70 Respiratory 18 16 Rate Blood Pressure 144/80 151/78 O2 Sat by Pulse 96 97 Oximetry Medical Decision Making - Medical Decision Making Patient presents with chief complaint of heart palpitations. On initial evaluation, vitals are stable, patient is in no acute distress. Pulses are eq ual in the upper extremities bilaterally, pulses are regular. Patient will be evaluated patient labs and cardiac enzymes, d-dimer sent, EKG will be obtained. Patient states that she is ALLERGIC to aspirin, will hold at this time. EKG performed in 1957 shows sinus rhythm with a rate of 70 bpm. Things appear to be within normal limits, and no acute signs of ischemia. 12:09 AM Laboratory evaluation of this patient shows an elevated d-dimer. Labs are otherwise unremarkable. Follow-up computed tomography scan shows no evidence of PE, lungs are clear, no pleural effusions or adenopathy. At this time, patient stable for discharge. The results were discussed with her. She was instructed to follow with primary care in 1-2 days, return to the ED if symptoms worsen or change. Regarding her palpitations, the patient remained on the monitor while in the emergency department without any evidence of arrhythmia. I discussed with her the utility of a Holter monitor that she should follow-up with her primary care doctor for. - Lab Data Result diagrams: 09/16/18 20:06 09/16/18 20:06 Lab Results 09/16/18 09/16/18 09/16/18 Range/Units 20:06 20:06 20:06 WBC 9.7 (3.8-10.6) k/uL RBC 5.31 (3.80-5.40) m/uL Hgb 15.2 (11.4-16.0) gm/dL Hct 47.0 H (34.0-46.0) % MCV 88.6 (80.0-100.0) fL MCH 28.7 (25.0-35.0) pg MCHC 32.4 (31.0-37.0) g/dL RDW 12.9 (11.5-15.5) % Plt Count 280 (150-450) k/uL Neutrophils % 70 % Lymphocytes % 20 % Monocytes % 6 % Eosinophils % 3 % Basophils % 0 % Neutrophils # 6.8 (1.3-7.7) k/uL Lymphocytes # 1.9 (1.0-4.8) k/uL Monocytes # 0.6 (0-1.0) k/uL Eosinophils # 0.3 (0-0.7) k/uL Basophils # 0.0 (0-0.2) k/uL D-Dimer 0.95 H (<0.60) mg/L FEU Sodium 138 (137-145) mmol/L Potassium 5.0 (3.5-5.1) mmol/L Chloride 105 (98-107) mmol/L Carbon Dioxide 25 (22-30) mmol/L Anion Gap 8 mmol/L BUN 16 (7-17) mg/dL Creatinine 0.61 (0.52-1.04) mg/dL Est GFR (CKD-EPI)AfAm >90 (>60 ml/min/1.73 sqM) Est GFR (CKD-EPI)NonAf >90 (>60 ml/min/1.73 sqM) Glucose 163 H (74-99) mg/dL Calcium 10.4 H (8.4-10.2) mg/dL Troponin I (0.000-0.034) ng/mL NT-Pro-B Natriuret Pep pg/mL 09/16/18 09/16/18 Range/Units 20:06 20:06 WBC (3.8-10.6) k/uL RBC (3.80-5.40) m/uL Hgb (11.4-16.0) gm/dL Hct (34.0-46.0) % MCV (80.0-100.0) fL MCH (25.0-35.0) pg MCHC (31.0-37.0) g/dL RDW (11.5-15.5) % Plt Count (150-450) k/uL Neutrophils % % Lymphocytes % % Monocytes % % Eosinophils % % Basophils % % Neutrophils # (1.3-7.7) k/uL Lymphocytes # (1.0-4.8) k/uL Monocytes # (0-1.0) k/uL Eosinophils # (0-0.7) k/uL Basophils # (0-0.2) k/uL D-Dimer (<0.60) mg/L FEU Sodium (137-145) mmol/L Potassium (3.5-5.1) mmol/L Chloride (98-107) mmol/L Carbon Dioxide (22-30) mmol/L Anion Gap mmol/L BUN (7-17) mg/dL Creatinine (0.52-1.04) mg/dL Est GFR (CKD-EPI)AfAm (>60 ml/min/1.73 sqM) Est GFR (CKD-EPI)NonAf (>60 ml/min/1.73 sqM) Glucose (74-99) mg/dL Calcium (8.4-10.2) mg/dL Troponin I <0.012 (0.000-0.034) ng/mL NT-Pro-B Natriuret Pep 71 pg/mL Disposition Clinical Impression: Palpitations, Elevated d-dimer Disposition: HOME SELF-CARE Condition: Good Instructions (If sedation given, give patient instructions): Heart Palpitations (ED) Is patient prescribed a controlled substance at d/c from ED?: No Referrals: Shira Velasquez DO [Primary Care Provider] - 1-2 days
[2018-09-16 20:19] LABS: Basophils % (A) 0 %; Eosinophils # (A) 0.3 k/uL (0-0.7); Eosinophils % (A) 3 %; HGB 15.2 gm/dL (11.4-16.0); Lymphocytes # (A) 1.9 k/uL (1.0-4.8); Lymphocytes % (A) 20 %; MCH 28.7 pg (25.0-35.0); MCHC 32.4 g/dL (31.0-37.0); MCV 88.6 fL (80.0-100.0); Mean Platelet Volume 7.8; Monocytes # (A) 0.6 k/uL (0-1.0); Monocytes % (A) 6 %; Neutrophils # (A) 6.8 k/uL (1.3-7.7); Neutrophils % (A) 70 %; Platelet Count 280 k/uL (150-450); RBC 5.31 m/uL (3.80-5.40); RDW 12.9 % (11.5-15.5); WBC 9.7 k/uL (3.8-10.6)
[2018-09-16 20:31] LABS: Anion Gap 8 mmol/L; Blood Urea Nitrogen 16 mg/dL (7-17); Calcium 10.4 mg/dL (8.4-10.2); Carbon Dioxide 25 mmol/L (22-30); Chloride 105 mmol/L (98-107); Glucose 163 mg/dL (74-99); Sodium 138 mmol/L (137-145)
--- NOTE | 2018-09-16 20:38 | XR ---
EXAMINATION: XR chest 2V DATE AND TIME: 09/16/2018 8:21 PM CLINICAL INDICATION: PHH; Pain TECHNIQUE: Departmental protocol COMPARISON: 08/29/2016 FINDINGS: The lungs are clear. The pleural spaces are negative. The cardiac silhouette is not enlarged. The remainder of the mediastinal silhouette is unremarkable. The skeletal structures and soft tissues are negative for acute findings. IMPRESSION: NO ACUTE PROCESS.
[2018-09-17 00:40] VITALS: BP 128/79; PULSE 71; RESP 19; TEMP 98.9
--- NOTE | 2018-09-17 07:52 | CT ---
EXAMINATION TYPE: CT chest angio for PE DATE OF EXAM: 09/17/2018 COMPARISON: CT chest April 05, 2018 HISTORY: r/o pe chest pain. CT DLP: 982.30 mGycm. Automated Exposure Control for Dose Reduction was Utilized. CONTRAST: CTA scan of the thorax is performed with IV Contrast, patient injected with 74 mL of Isovue 370, pulm onary embolism protocol. MIP Images are created on CT scanner and reviewed. FINDINGS: LUNGS: There is elevated left hemidiaphragm with prominent left pericardial fat pad. There is signifi cant respiratory motion artifact degradation making evaluation suboptimal particularly for subcentime ter nodularity. No suspicious focal consolidation is present. No pleural effusion or pneumothorax is seen bilaterally. MEDIASTINUM: There is slightly suboptimal bolus with heterogeneity near equal contrast in right and l eft heart systems but no CT evidence for acute pulmonary embolism. There are no greater than 1 cm hi lar or mediastinal lymph nodes. No significant pericardial effusion is seen. Mild cardiomegaly is p resent. Four-vessel arch from the aorta is normal variant. OTHER: Liver is diffusely low dense consistent with fatty infiltration. Cholecystectomy clips are see n. Small splenule is seen inferior and anterior to the spleen axial image 138. There is moderate mult ilevel anterior lateral spurring in the thoracic spine with slight scoliotic curvature. Stable promin ent borderline enlarged right axillary lymph node axial image 50. IMPRESSION: 1. Slightly suboptimal study without CT evidence for acute pulmonary embolism. 2. Redemonstration of mild cardiomegaly without suspicious acute pulmonary process. Preliminary report for study was provided by [facility] [employer].
== END 2018-09-17 00:40 | disposition home or self-care (01) ==
LOC: EC 18:34
DX: R79.1 Abnormal coagulation profile (principal); R00.2 Palpitations; R42 Dizziness and giddiness; E11.9 Type 2 diabetes mellitus without complications; I25.2 Old myocardial infarction; H40.9 Unspecified glaucoma; K21.9 Gastro-esophageal reflux disease without esophagitis; E07.9 Disorder of thyroid, unspecified; M19.90 Unspecified osteoarthritis, unspecified site; M35.00 Sjogren syndrome, unspecified; Z88.1 Allergy status to other antibiotic agents; Z88.6 Allergy status to analgesic agent; Z88.8 Allergy status to other drugs, medicaments and biological substances; Z91.048 Other nonmedicinal substance allergy status; Z79.84 Long term (current) use of oral hypoglycemic drugs; Z79.891 Long term (current) use of opiate analgesic; Z79.899 Other long term (current) drug therapy; Z98.1 Arthrodesis status
CPT/HCPCS: 36415; 93005; 85379; 83880; 80048; 84484; 85025; 71046; 71275; 99285; Q9967

== ENCOUNTER → 2019-03-20 | Outpatient (CLI) | payer BC, MEDICARE ==
--- NOTE | 2019-03-20 17:43 | MR ---
Brain MR without contrast HISTORY: Abnormal MRI brain, memory loss, imbalance and falling Multiplanar multisequence imaging obtained through the brain and correlated to prior brain MRI dated 05/03/2017 There is no restricted diffusion. No significant interval change in the diffusely scattered hyperinte nsities within the deep white matter on inversion recovery and T2-weighted sequences. The corpus call osum, pituitary, cervical medullary junction, cerebellopontine angles are stable. There are normal va scular flow voids. Orbits show symmetric appearance. There is no hemorrhage or hydrocephalus. IMPRESSION: Essentially stable white matter signal changes.
== END | disposition home or self-care (01) ==
LOC: RADMRIMAIN 11:26
PROVIDERS: ATTEND Psychiatry & Neurology Neurology
DX: R94.02 Abnormal brain scan (principal); G37.9 Demyelinating disease of central nervous system, unspecified; R41.3 Other amnesia; R26.89 Other abnormalities of gait and mobility
CPT/HCPCS: 70551

== ENCOUNTER 2020-09-02 06:48 | Day surgery (SDC) | payer BC, MEDICARE ==
[2020-08-30 09:35] VITALS: BMI 48.0
[~2020-09-02 06:48] MED LIST changes: -DEXAMETHASONE SOD PHOSPHATE 4 MG/ML 1 ML VIAL IV ONE; -FAMOTIDINE 20 MG/2 ML VIAL IV ONE; -LIDOCAINE 1% 20 ML VIAL (10MG/ML) FOR IV START INTRADERMA PRN; -ONDANSETRON 4 MG/2 ML VIAL IVP ONE; -Pre Op ABX Message 1 EACH MISC MISCELLANE ONE; -fentaNYL (PF) 50 MCG/ML 2 ML AMP IV PRN
[2020-09-02 07:17] VITALS: RESP 16; TEMP 98.3
[2020-09-02] MEDS ORDERED: LACTATED RINGERS 1,000 ML IV ONE (07:17)
[2020-09-02] MEDS ORDERED: LIDOCAINE 1% (10MG/ML) FOR IV START INTRADERMA ONE (07:18)
[2020-09-02 07:50] LABS: Glucose,Whole Blood 148 mg/dL (75-99)
[2020-09-02] MEDS ORDERED: PROPOFOL 10 MG/ML 20 ML VIAL IV ONE (07:56)
[2020-09-02] MEDS ORDERED: LIDOCAINE 1% INJ 10MG/ML (20 ML MDV) ONE (07:56)
--- NOTE | 2020-09-02 08:00 | P.GSHP ---
History of Present Illness H&P Date: 09/02/20 Chief Complaint: Dysphagia This a 6-year-old female with history of dysphagia. Patient is today for EGD Past Medical History Past Medical History: Asthma, Diabetes Mellitus, Eye Disorder, Hyperlipidemia, Hypertension, Liver Disease, Myocardial Infarction ([place]), Osteoarthritis (OA), Pulmonary Embolus (PE), Seizure Disorder, Sleep Apnea/CPAP/BIPAP, Thyroid Disorder Additional Past Medical History / Comment(s): PAST HX OF SHINGLES IN MOUTH AND THROAT. SJORGREN'S, glaucoma delores eyes, siezures as child until age 17, no cpap used, hiatal hernia, diff swallowing(diff taking pills), fatty liver, frequent urination, dizzness Last Myocardial Infarction Date:: 05/16 History of Any Multi-Drug Resistant Organisms: None Reported Past Surgical History: Section, Cholecystectomy, Hernia Repair, Hysterectomy, Orthopedic Surgery Additional Past Surgical History / Comment(s): COLONOSCOPY, delores carpal tunnel, O VARIAN CYSTECTOMY, delores cataracts, cervical disc C6 replaced with plate and 4 screws, rt ankle heel spur, left knee arthroscopy Past Anesthesia/Blood Transfusion Reactions: Previous Problems w/ Anesthesia, Motion Sickness, Postoperative Nausea & Vomiting (PONV) Additional Past Anesthesia/Blood Transfusion Reaction / Comment(s): "hard time waking up" and states difficult to lay flat Smoking Status: Never smoker - Past Family History Mother Family Medical History: Cancer Additional Family Medical History / Comment(s): breast Father Family Medical History: Deep Vein Thrombosis (DVT) Medications and Allergies Home Medications Medication Instructions Recorded Confirmed Type Verapamil HCl [Verapamil ER] 180 mg PO DAILY 12/09/13 09/02/20 History Ergocalciferol [Vitamin D2 50,000 units PO WATSON 07/17/17 09/02/20 History (DRISDOL)] HYDROcodone/APAP 7.5-325MG [[place] 1 tab PO DAILY 07/17/17 09/02/20 History 7.5-325] Hydroxychloroquine Sulfate 200 mg PO BID 07/17/17 09/02/20 History [Plaquenil] Levothyroxine Sodium [Synthroid] 100 mcg PO DAILY 07/17/17 09/02/20 History Pilocarpine HCl [[place]agen] 7.5 mg PO TID 07/17/17 09/02/20 History Latanoprost/Pf [Latanoprost 0.005% 1 drop BOTH EYES DAILY 05/08/18 09/02/20 History Eye Drop] Atorvastatin [Lipitor] 10 mg PO HS 09/16/18 09/02/20 History Albuterol Sulfate [Proair 2 puff INHALATION QAM 08/30/20 09/02/20 History Digihaler] Brimonidine Tartrate [Alphagan P 1 drops LEFT EYE BID 08/30/20 09/02/20 History 0.2% Ophth Soln] Dulaglutide [Trulicity] 1.5 mg SQ MO 08/30/20 09/02/20 History Losartan Potassium [Cozaar] 50 mg PO QAM 08/30/20 09/02/20 History Meclizine [Antivert] 12.5 mg PO TID 08/30/20 09/02/20 History Pantoprazole [Protonix] 40 mg PO DAILY 08/30/20 09/02/20 History Allergies Allergy/AdvReac Type Severity Reaction Status Date / Time adhesive Allergy Rash/Hives Verified 09/02/20 07:11 aspirin Allergy Anaphylaxis Verified 09/02/20 07:11 gabapentin Allergy Rash/Hives Verified 09/02/20 07:11 NSAIDS (Non-Steroidal Allergy Rash/Hives Verified 09/02/20 07:11 Anti-Inflamma ciprofloxacin [From Cipro] AdvReac Rash/Hives Verified 09/02/20 07:11 ciprofloxacin HCl AdvReac Rash/Hives Verified 09/02/20 07:11 [From Cipro] steroids Allergy Rash/Hives Uncoded 09/02/20 07:11 sulfates Allergy Rash/Hives Uncoded 09/02/20 07:11 Surgical - Exam Vital Signs Temp Pulse Resp BP Pulse Ox 98.3 F 76 16 140/72 99 09/02/20 07:16 09/02/20 07:16 09/02/20 07:16 09/02/20 07:16 09/02/20 07:16 - General well developed, well nourished, no distress - Eyes PERRL - ENT normal pinna - Neck no masses - Respiratory normal expansion - Cardiovascular Rhythm: regular - Abdomen Abdomen: soft, non tender Results - Labs Abnormal Lab Results - Last 24 Hours (Table) 09/02/20 Range/Units 07:22 POC Glucose (mg/dL) 148 H (75-99) mg/dL Assessment and Plan Assessment: Dysphagia. We'll perform EGD.
--- NOTE | 2020-09-02 08:07 | P.OP ---
Date of Procedure: 09/02/20 Preoperative Diagnosis: Dysphagia Postoperative Diagnosis: Duodenitis Antral gastritis Procedure(s) Performed: EGD Anesthesia: MAC Surgeon: Wilfredo Meredith Pathology: other (Antrum, duodenum) Condition: stable Disposition: PACU Description of Procedure: The patient's placed on the endoscopy table in the lateral position. She received IV sedation. The gastro-/oropharynx passed in the esophagus and stomach. Scope was then placed through the pylorus. The first and second portion duodenum appeared inflamed a biopsies performed.. Scope was then brought back the antrum this was mildly inflamed. Masses performed. Scope was unretroflexed and remainder of the stomach appeared normal. The GE junction was 40 cm. There is no evidence of a hiatal hernia. Distal esophagus appeared normal. The proximal esophagus appeared normal. Scope was withdrawn for patient.
[2020-09-02 08:34] VITALS: BP 104/63; PULSE 59
== END 2020-09-02 08:50 | disposition home or self-care (01) ==
LOC: ORWHC2ENDO 06:48
PROVIDERS: ATTEND Surgery
DX: J45.909 Unspecified asthma, uncomplicated (principal); E11.9 Type 2 diabetes mellitus without complications; E78.5 Hyperlipidemia, unspecified; I10 Essential (primary) hypertension; K76.0 Fatty (change of) liver, not elsewhere classified; I25.2 Old myocardial infarction; M19.90 Unspecified osteoarthritis, unspecified site; Z86.711 Personal history of pulmonary embolism; G40.909 Epilepsy, unspecified, not intractable, without status epilepticus; G47.33 Obstructive sleep apnea (adult) (pediatric); Z99.89 Dependence on other enabling machines and devices; M35.00 Sjogren syndrome, unspecified; H40.9 Unspecified glaucoma; R35.0 Frequency of micturition; Z98.891 History of uterine scar from previous surgery; Z90.49 Acquired absence of other specified parts of digestive tract; Z90.710 Acquired absence of both cervix and uterus; Z98.890 Other specified postprocedural states; Z98.42 Cataract extraction status, left eye; Z98.41 Cataract extraction status, right eye; Z80.3 Family history of malignant neoplasm of breast; Z82.49 Family history of ischemic heart disease and other diseases of the circulatory system; Z79.890 Hormone replacement therapy; Z79.891 Long term (current) use of opiate analgesic; Z79.899 Other long term (current) drug therapy; Z88.6 Allergy status to analgesic agent; Z88.1 Allergy status to other antibiotic agents; Z88.2 Allergy status to sulfonamides; Z88.8 Allergy status to other drugs, medicaments and biological substances; Z91.09 Other allergy status, other than to drugs and biological substances
CPT/HCPCS: 88305; 43239; J2001; J2704

== ENCOUNTER → 2020-10-07 | Outpatient (CLI) | payer BC, MEDICARE ==
--- NOTE | 2020-10-07 13:33 | FL ---
EXAMINATION TYPE: FL UGI air w esophagus DATE OF EXAM: 10/07/2020 COMPARISON: 04/30/2018 HISTORY: 60 year-old female R13.10, dysphagia, sensation of food sticking along the right side of the neck TECHNIQUE: A double contrast UGI study is performed. Total fluoroscopy time: 3 minutes. Total images: 50. FINDINGS: The swallowing mechanism is normal and hypopharyngeal anatomy is preserved. Postsurgical change of C6-C7 ACDF is demonstrated. There is an anterior endplate spur extending from C5 down anterior to the fixation plate is present in 2018. However, compared to 2018, there is slight thickening of the prevertebral soft tissues now noted. The patient gags after every couple swallows and explains that this occurs due to a sensation when food passes across the lower neck level. Very limited assessment shows no suspicious filling defect or mucosal abnormality of the thoracic eso phagus. Mild tertiary peristaltic contractions are demonstrated. No fixed narrowing. No hiatal hernia. Gastroesophageal reflux could not be elicited. Limited air distention of the stomach due to recurrent gagging by the patient. Overall mucosal folds appear normal. No evidence mass or ulcer disease. The duodenal bulb, sweep, and proximal small bowel loops are unremarkable. IMPRESSION: 1. Limited study due to recurrent gagging after every couple swallows. The patient explains that this occurs due to a sensation when food passes across the lower neck level. The patient points to around the level of her C6-C7 ACDF. 2. As compared to the 2018 study, there is slight increase in prevertebral soft tissue thickening. Co ntrast enhanced CT soft tissue neck can exclude any retropharyngeal/prevertebral pathology. 3. Otherwise, allowing for the limitations of the study, the remainder of the esophagus, stomach, and duodenum appear within normal limits.
== END | disposition home or self-care (01) ==
LOC: RADUSWWP 08:32
PROVIDERS: ATTEND Surgery
DX: R13.10 Dysphagia, unspecified (principal)
CPT/HCPCS: 74246

== ENCOUNTER → 2020-12-30 | Outpatient (CLI) | payer BC, MEDICARE | END | disposition home or self-care (01) | CPT/HCPCS: 77063; 77067 ==

== ENCOUNTER → 2022-02-02 | Outpatient (CLI) | payer BC, MEDICARE ==
--- NOTE | 2022-02-05 08:06 | MM ---
Reason for Exam: Screening (asymptomatic). Last mammogram was performed 1 year(s) and 1 month(s) ago. Patient History: Menarche at age 11. First Full-Term at age 27. Left ovary removed at age 50. Right ovary removed at age 50. Hysterectomy at age 34. Postmenopausal. Hormonal Contraceptives, starting at age 10 for 23 years. Benign Cyst Aspiration on the left side. Maternal grandmother had breast cancer, age 33. Maternal cousin had breast cancer. Mother had breast cancer, age 30. Risk Values: Cathy 5 year model risk: 3.2%. NCI Lifetime model risk: 14.8%. Prior Study Comparison: 09/14/2016 Bilateral Diagnostic Mammogram, [facility]. 04/25/2018 Bilateral Screening Mammogram, [facility]. 12/30/2020 Bilateral Screening Mammogram, [facility]. Tissue Density: There are scattered fibroglandular densities. Findings: Analyzed By CAD. There is a 0.4 cm oval density with smooth margins 8 cm from the nipple. The craniocaudal view this is not easily confirmed. These appear to be present on the medial lateral oblique view previously. Additional workup is recommended. No suspicious groups of microcalcifications, spiculated or lobular masses, architectural distortion or other secondary signs of malignancy are mammographically apparent. Overall Assessment: Incomplete: need additional imaging evaluation, BI-RAD 0 Management: Diagnostic Mammogram of the left breast. A negative mammogram report should not preclude additional follow up of suspicious palpable abnormalities. Patient should continue monthly self breast exam. A clinical breast exam by your physician is recommended on an annual basis and results should be correlated with mammographic findings. Electronically signed and approved by: Konrad Méndez D.O. Radiologis
== END | disposition home or self-care (01) ==
LOC: RADMAMWWP 12:28
PROVIDERS: ATTEND Family Medicine
DX: Z12.31 Encounter for screening mammogram for malignant neoplasm of breast (principal); Z78.0 Asymptomatic menopausal state; Z80.3 Family history of malignant neoplasm of breast
CPT/HCPCS: 77067

== ENCOUNTER → 2022-03-09 | Outpatient (CLI) | payer BC, MEDICARE ==
--- NOTE | 2022-03-09 11:26 | USB ---
Reason for Exam: Additional evaluation requested from abnormal screening. Patient History: Menarche at age 11. First Full-Term at age 27. Left ovary removed at age 50. Right ovary removed at age 50. Hysterectomy at age 34. Postmenopausal. Hormonal Contraceptives, starting at age 10 for 23 years. Benign Cyst Aspiration on the left side. Maternal grandmother had breast cancer, age 33. Maternal cousin had breast cancer. Mother had breast cancer, age 30. Risk Values: Cathy 5 year model risk: 3.2%. NCI Lifetime model risk: 14.8%. Technique: Method: Targeted. Prior Study Comparison: 04/25/2018 Bilateral Screening Mammogram, [facility]. 12/30/2020 Bilateral Screening Mammogram, [facility]. 02/02/2022 Bilateral MG screening mammo w CAD, [facility]. Findings: No solid or cystic masses are identified.. Overall Assessment: Probably benign, BI-RAD 3 Management: Diagnostic Breast Ultrasound of the left breast in 6 months. A clinical breast exam by your physician is recommended on an annual basis and results should be correlated with mammographic findings. Electronically signed and approved by: Yobani Walton M.D. Radiologis
--- NOTE | 2022-03-09 13:16 | MM ---
Reason for Exam: Additional evaluation requested from abnormal screening. Last screening mammogram was performed 1 month(s) ago. Patient History: Menarche at age 11. First Full-Term at age 27. Left ovary removed at age 50. Right ovary removed at age 50. Hysterectomy at age 34. Postmenopausal. Hormonal Contraceptives, starting at age 10 for 23 years. Benign Cyst Aspiration on the left side. Maternal grandmother had breast cancer, age 33. Maternal cousin had breast cancer. Mother had breast cancer, age 30. Risk Values: Cathy 5 year model risk: 3.2%. NCI Lifetime model risk: 14.8%. Prior Study Comparison: 04/25/2018 Bilateral Screening Mammogram, [facility]. 12/30/2020 Bilateral Screening Mammogram, [facility]. 02/02/2022 Bilateral MG screening mammo w CAD, [facility]. Tissue Density: Left: There are scattered fibroglandular densities. Findings: Analyzed By CAD. Persistent nodular density inner upper left breast. Ultrasound is recommended. Overall Assessment: Incomplete: need additional imaging evaluation, BI-RAD 0 Management: Diagnostic Breast Ultrasound of the left breast. A clinical breast exam by your physician is recommended on an annual basis and results should be correlated with mammographic findings. This exam should not preclude additional follow-up of suspicious palpable abnormalities. Results were given to the patient verbally at the time of exam. Electronically signed and approved by: Yobani Walton M.D. Radiologis
== END | disposition home or self-care (01) ==
LOC: RADMAMWWP 09:48
PROVIDERS: ATTEND Family Medicine
DX: R92.8 Other abnormal and inconclusive findings on diagnostic imaging of breast (principal); Z78.0 Asymptomatic menopausal state; Z80.3 Family history of malignant neoplasm of breast; Z98.890 Other specified postprocedural states
CPT/HCPCS: 77065

== ENCOUNTER → 2023-02-15 | Outpatient (CLI) | payer BC, MEDICARE ==
--- NOTE | 2023-02-18 20:25 | MM ---
Reason for Exam: Screening (asymptomatic). Last screening mammogram was performed 12 month(s) ago. Patient History: Menarche at age 11. First Full-Term at age 27. Left ovary removed at age 50. Right ovary removed at age 50. Hysterectomy at age 34. Postmenopausal. Hormonal Contraceptives, starting at age 10 for 23 years. Benign Cyst Aspiration on the left side. Maternal grandmother had breast cancer, age 33. Maternal cousin had breast cancer. Maternal aunt had ovarian cancer at or over age 50. Mother had breast cancer, age 30. Mother had ovarian cancer under age 50. Risk Values: Cathy 5 year model risk: 3.3%. NCI Lifetime model risk: 14.3%. Prior Study Comparison: 09/14/2016 Bilateral Diagnostic Mammogram, [facility]. 04/25/2018 Bilateral Screening Mammogram, [facility]. 12/30/2020 Bilateral Screening Mammogram, [facility]. 02/02/2022 Bilateral MG screening mammo w CAD, [facility]. 03/09/2022 Left MG diagnostic mammo LT w CAD, [facility]. Tissue Density: There are scattered fibroglandular densities. Findings: Analyzed By CAD. There is no suspicious group of microcalcifications or new suspicious mass in either breast. Overall Assessment: Benign, BI-RAD 2 Management: Screening Mammogram of both breasts in 1 year. See note below in regards to patient's increased five-year Cathy score. Patient should continue monthly self-breast exams. A clinical breast exam by your physician is recommended on an annual basis. This exam should not preclude additional follow-up of suspicious palpable abnormalities. Note on Cathy scores and lifetime risk: 1. A Cathy score greater than 3% is considered moderate risk. If this is the case, consider specialist referral to assess eligibility for a risk reducing agent. 2. If overall lifetime risk for the development of breast cancer is 20% or higher, the patient may qualify for future screening with alternating mammogram and breast MRI. Electronically signed and approved by: Janette Krishna M.D. Radiologist
== END | disposition home or self-care (01) ==
LOC: RADMAMWWP 10:32
PROVIDERS: ATTEND Family Medicine
DX: Z12.31 Encounter for screening mammogram for malignant neoplasm of breast (principal); Z78.0 Asymptomatic menopausal state; Z80.3 Family history of malignant neoplasm of breast
CPT/HCPCS: 77063; 77067

== ENCOUNTER 2024-02-14 08:00 | Day surgery (SDC) | payer BC, MEDICARE ==
[2024-02-14] MEDS ORDERED: GLYCOPYRROLATE 0.2 MG/ML 2 ML VIAL ONE (09:07)
[2024-02-14] MEDS ORDERED: PROPOFOL 10 MG/ML 20 ML VIAL IV ONE (09:07)
--- NOTE | 2024-03-04 16:30 | OP ---
OPERATIVE REPORT DATE OF SERVICE : 02/14/2024 REQUESTING PHYSICIAN: Kesha Rivas. BRIEF HISTORY: The patient is a 63-year-old pleasant white female scheduled for an elective colonoscopy as a part of evaluation of positive Cologuard/screening for colon cancer. PROCEDURE PERFORMED: Colonoscopy with snare polypectomy. PREOPERATIVE DIAGNOSIS: Screening for colon cancer/positive Cologuard. ANESTHESIA: IV sedation per Anesthesia. DESCRIPTION OF PROCEDURE: After informed consent was obtained from the patient, she was brought into the endoscopy unit. IV conscious sedation was administered by Anesthesia on continuous monitoring. Initial digital rectal examination was normal. The Olympus CF-180 video colonoscope was then inserted into the rectum, gradually advanced into the cecum. Careful examination was performed and the scope was gradually being withdrawn. The ileocecal valve and appendiceal orifice were visualized and appeared normal. The prep was excellent. Mucosa of the cecum, ascending colon, transverse colon, descending colon appeared normal. In the sigmoid colon, there was a 5 mm polyp that was removed by cold snare polypectomy. The rectum appeared normal. Retroflexion was performed in the rectum. No lesions were noted. The patient tolerated the procedure well. IMPRESSION: 1. 5 mm sigmoid colon polyp, status post cold snare polypectomy. 2. Rest of the colon appeared normal. RECOMMENDATIONS: Findings of this examination were discussed with the patient as well as her family. She was advised to follow up with the biopsy results, and if the biopsy revealed adenoma, recommend a repeat colonoscopy in 5 years. MMODL / IJN: [id number] /
== END 2024-02-14 09:50 ==
LOC: ORWHC2ENDO 08:00
PROVIDERS: ATTEND Internal Medicine Gastroenterology
DX: K63.5 Polyp of colon
CPT/HCPCS: 45385

== ENCOUNTER → 2024-04-24 | Outpatient (CLI) | payer BC, MEDICARE ==
[2024-04-24 15:05] LABS: HCT 44.6 % (37.2-46.3); MCH 31.5 pg (27.0-32.0); MCHC 33.6 g/dL (32.0-37.0); MCV 93.7 FL (80.0-97.0); Mean Platelet Volume 11.2 FL (9.5-12.2); NRBC Per 100 WBC 0 X 10*3/uL (0.00-0.01); Platelet Count 390 X 10*3/uL (140-440); RBC 4.76 X 10*6/uL (4.10-5.20); RDW 11.4 % (11.5-14.5); WBC 10.74 X 10*3/uL (4.50-10.00)
[2024-04-24 15:26] LABS: ALT 44 U/L (8-44); AST 37 U/L (13-35); Albumin 4.3 g/dL (3.8-4.9); Albumin/Globulin Ratio 1.87 Ratio (1.60-3.17); Alkaline Phosphatase 117 U/L (41-126); BUN/Creat Ratio 21.33 Ratio (12.00-20.00); Blood Urea Nitrogen 19.2 mg/dL (9.0-27.0); Calcium 10.5 mg/dL (8.7-10.3); Carbon Dioxide 28.4 mmol/L (21.6-31.8); Chloride 101 mmol/L (96-109); Chol/HDL Ratio 1.86 Ratio; Globulin 2.3 g/dL (1.6-3.3); Glucose 174 mg/dL (70-110); LDL Cholesterol,Calculated 51.6 mg/dL (0.0-131.0); Potassium 5.6 mmol/L (3.5-5.5); Sodium 140 mmol/L (135-145); Total Bilirubin 1.4 mg/dL (0.3-1.2); Total Protein 6.6 g/dL (6.2-8.2); VLDL Calculation 16.82 mg/dL (5.00-40.00)
== END | disposition home or self-care (01) ==
LOC: LABWHC1 09:16
PROVIDERS: ATTEND Family Medicine
CPT/HCPCS: 36415; 80053; 80061; 83036; 84443; 85027

== ENCOUNTER → 2025-01-15 | Outpatient (CLI) | payer BC, MEDICARE ==
--- NOTE | 2025-01-15 09:59 | MM ---
Reason for Exam: Screening (asymptomatic). Last mammogram was performed 1 year(s) and 11 month(s) ago. Patient History: Menarche at age 11. First Full-Term at age 27. Left ovary removed at age 50. Right ovary removed at age 50. Hysterectomy at age 34. Postmenopausal. Hormonal Contraceptives, starting at age 10 for 23 years. Benign Cyst Aspiration on the left side. Maternal grandmother had breast cancer, age 33. Maternal cousin had breast cancer. Maternal aunt had ovarian cancer at or over age 50. Mother had breast cancer, age 30. Mother had ovarian cancer under age 50. Risk Values: Cathy 5 year model risk: 3.5%. NCI Lifetime model risk: 13.5%. Prior Study Comparison: 02/02/2022 Bilateral MG screening mammo w CAD, [facility]. 03/09/2022 Left MG diagnostic mammo LT w CAD, [facility]. 02/15/2023 Bilateral MG 3D screening mammo w/cad, [facility]. Tissue Density: There are scattered areas of fibroglandular density. Findings: Analyzed By CAD. There is no suspicious group of microcalcifications or new suspicious mass in either breast. Overall Assessment: Benign, BI-RAD 2 Management: Screening Mammogram of both breasts in 1 year. . Patient should continue monthly self-breast exams. A clinical breast exam by your physician is recommended on an annual basis. This exam should not preclude additional follow-up of suspicious palpable abnormalities. Note on Cathy scores and lifetime risk: 1. A Cathy score greater than 3% is considered moderate risk. If this is the case, consider specialist referral to assess eligibility for a risk reducing agent. 2. If overall lifetime risk for the development of breast cancer is 20% or higher, the patient may qualify for future screening with alternating mammogram and breast MRI. [facility], , 01/15/2025 9:56 AM. Electronically signed and approved by: Sandoval Sykes M.D. Radiologis
== END | disposition home or self-care (01) ==
LOC: RADMAMWWP 09:24
PROVIDERS: ATTEND Family Medicine
DX: Z12.31 Encounter for screening mammogram for malignant neoplasm of breast (principal); R92.323 Mammographic fibroglandular density, bilateral breasts; Z78.0 Asymptomatic menopausal state; Z80.3 Family history of malignant neoplasm of breast; Z92.0 Personal history of contraception
CPT/HCPCS: 77063; 77067